=== PATIENT | male | born 1960 | race Caucasian/White ===

== ENCOUNTER 2016-07-27 21:08 | Emergency (ER) | payer BC ==
[2016-07-27 21:39] VITALS: BP 163/91
[2016-07-27] MEDS ORDERED: Indomethacin 25 MG Cap PO ONE (22:10)
--- NOTE | 2016-07-27 22:16 | EDM.PDOC ---
ED HPI Trauma - General Chief Complaint: Lower Extremity Injury/Pain Stated Complaint: FOOT Time Seen by Provider: 07/27/16 22:05 Source: Reports: Patient History Limitations: Reports: No limitations - History of Present Illness INITIAL COMMENTS - FREE TEXT/NARRATIVE: This 56 yo male patient reports to the ED with swelling in his left foot. The patient reports he has a history of gout and has had similar gout attacks in the past. The patient ran out of Indomethacin. The patient reports that he currently does not have a primary care provider and is not on any medications for managing his gout. The patient reports he recently ate beans, which may have precipitated the attack. Symptom Onset Date: 07/26/16 Occurred Where: other Method of Injury: other Severity: moderate Pain/Injury Location: Reports: lower extremity, left Consciousness: Reports: no loss of consciousness Associated Symptoms: Reports: no other symptoms Allergies/ADRs: Allergies No Known Allergies Allergy (Verified 07/27/16 21:40) Home Medications: Ambulatory Orders Indomethacin [Indocin] 2 tab PO DAILY 10/16/14 [Confirmed 07/27/16] Past Medical History - Past Health History Medical/Surgical History: Denies Medical/Surgical History Other Gastrointestinal History: hepatitis C Musculoskeletal History: Reports: Gout Social & Family History - Tobacco Use Smoking Status *Q: Current Every Day Smoker Years of Tobacco use: 30 Packs/Tins Daily: 1 Used Tobacco, but Quit: No Second Hand Smoke Exposure: Yes - Caffeine Use Caffeine Use: Reports: Coffee - Alcohol Use Days Per Week of Alcohol Use: 7 Number of Drinks Per Day: 2 Total Drinks Per Week: 14 - Recreational Drug Use Recreational Drug Use: No Review of Systems - Review of Systems Review Of Systems: ROS reveals no pertinent complaints other than HPI. Trauma Exam - Physical Exam Exam: See Below Exam Limited By: No limitations General Appearance: Reports: alert, WD/WN Head: Reports: atraumatic, normocephalic Eyes: bilateral eye: EOMI, normal inspection, PERRL Ears: Reports: normal external exam, normal canal, hearing grossly normal, normal TMs Nose: Reports: normal inspection, normal mucousa, no blood Throat/Mouth: Reports: Normal inspection, Normal lips, Normal teeth, Normal gums , Normal oropharynx, Normal voice, No airway compromise Neck: Reports: non-tender, full range of motion, normal alignment, normal inspection Respiratory Exam: Reports: no respiratory distress, lungs clear, normal breath sounds Cardiovascular: Reports: normal peripheral pulses, regular rate, rhythm, no edema, no gallop, no JVD, no murmur, no rub GI/Abdominal: Reports: normal bowel sounds, soft, non tender, no organomegaly, no distention, no abnormal bruit, no mass (Male) Exam: Deferred Rectal (Males) Exam: Deferred Back: Reports: full range of motion, normal inspection, non-tender Extremities: Reports: pedal edema (left foot and ankle) 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, no motor/sensory deficits, alert , normal mood/affect, oriented x 3 Skin: Reports: Normal color, Warm/dry - Irving Coma Score Best Eye Response (Irving): (4) open spontaneously Best Verbal Response (Irving): (5) oriented Best Motor Response (Irving): (6) obeys commands Ernesto Total: 15 Course - Vital Signs Last Recorded V/S: Last Vital Signs Temp 36.0 C 07/27/16 21:37 Pulse 91 07/27/16 21:37 Resp 20 07/27/16 21:37 BP 163/91 H 07/27/16 21:37 Pulse Ox 100 07/27/16 21:37 - Orders/Labs/Meds Meds: Medications Discontinued Medications Generic Name Dose Route Start Last Admin Trade Name Humza PRN Reason Stop Dose Admin Indomethacin 50 mg 07/27/16 22:10 Indocin PO 07/27/16 22:11 ONETIME ONE Departure - Departure Time of Disposition: 22:12 Disposition: Home, Self-Care 01 Condition: fair Clinical Impression: Gout attack Qualifiers: Gout site: foot Gout etiology: unspecified cause Laterality: left Qualified Code(s): M10.9 - Gout, unspecified Instructions: Gout, [id number] Forms: ED Department Discharge Care Plan Goals: The patient was advised of the examination results during the visit. The patient was given an oral dose of Indomethacin (50 mg) while in the ED. The patient was discharged with a script for Indomethacin (50 mg) #20 to take 1 by mouth 3 times per day. The patient should follow-up with a primary care facility for continued evaluation and treatment. If the patient has any additional symptoms or concerns, the patient should visit his primary care facility or return to the emergency department.
== END 2016-07-27 22:23 | disposition home or self-care (01) ==
LOC: DL.ED 21:08
DX: M10.9 Gout, unspecified (principal); F17.210 Nicotine dependence, cigarettes, uncomplicated
CPT/HCPCS: 99283; A9270

== ENCOUNTER 2017-01-11 11:59 | Emergency (ER) | payer BC ==
[2017-01-11 12:14] VITALS: BP 107/64
--- NOTE | 2017-01-11 12:57 | EDM.PDOC ---
ED HPI GENERAL MEDICAL PROBLEM - General Chief Complaint: Lower Extremity Injury/Pain Stated Complaint: RT ANKEL/FOOT. BROKE OR GOUT Time Seen by Provider: 01/11/17 12:50 Source of Information: Reports: Patient History Limitations: Reports: No Limitations - History of Present Illness INITIAL COMMENTS - FREE TEXT/NARRATIVE: Patient presents to the ER with complaints of right foot and ankle pain. He reports that the pain has been ongoing for the past three days. The pain started originally after falling 2-3 feet of a ladder. He reports he fell flat onto his heel and heard a "crunch." The pain has since worsened and is much more severe this morning. He rates the pain 10/10, described as throbbing and stabbing. He reports that the pain is typical to gout attacks in the past. He denies any other associated symptoms. Patient states that in the past the only thing that has worked for his gout pain is indomethacin. Right Feet Pain Score (Numeric/FACES): 10 - Related Data Allergies Allergy/AdvReac Type Severity Reaction Status Date / Time No Known Allergies Allergy Verified 01/11/17 12:10 Home Meds: Home Meds Indomethacin [Indocin] 2 tab PO DAILY 10/16/14 [History] Past Medical History - Past Health History Medical/Surgical History: Denies Medical/Surgical History HEENT History: Reports: Impaired Vision Other Gastrointestinal History: hepatitis C Musculoskeletal History: Reports: Gout Social & Family History - Family History Family Medical History: Noncontributory - Tobacco Use Smoking Status *Q: Current Every Day Smoker Years of Tobacco use: 40 Packs/Tins Daily: 0.5 Used Tobacco, but Quit: No Second Hand Smoke Exposure: Yes - Caffeine Use Caffeine Use: Reports: Coffee, Energy Drinks, Soda, Tea - Alcohol Use Days Per Week of Alcohol Use: 7 Number of Drinks Per Day: 2 Total Drinks Per Week: 14 Date of Last Drink: 01/10/17 - Recreational Drug Use Recreational Drug Use: No Review of Systems - Review of Systems Review Of Systems: ROS reveals no pertinent complaints other than HPI. ED EXAM, GENERAL - Physical Exam Exam: See Below Exam Limited By: Altered Mental Status General Appearance: Alert, WD/WN, No Apparent Distress Respiratory/Chest: No Respiratory Distress, Lungs Clear, Normal Breath Sounds, No Accessory Muscle Use, Chest Non-Tender Cardiovascular: Normal Peripheral Pulses, Regular Rate, Rhythm, No Edema, No Gallop, No JVD, No Murmur, No Rub GI/Abdominal: Normal Bowel Sounds, Soft, Non-Tender, No Organomegaly, No Distention, No Abnormal Bruit, No Mass (Male) Exam: Deferred Rectal (Males) Exam: Deferred Back Exam: Normal Inspection, Full Range of Motion, NT Extremities: Normal Inspection, Normal Range of Motion, Normal Capillary Refill , Joint Swelling, Redness (redness and swelling to right foot) Neurological: Alert, Oriented, CN II-XII Intact, Normal Cognition, Normal Gait, Normal Reflexes, No Motor/Sensory Deficits Skin Exam: Warm, Dry, Intact, Normal Color, No Rash Lymphatic: No Adenopathy Course - Vital Signs Last Recorded V/S: Last Vital Signs Temp 36.6 C 01/11/17 12:11 Pulse 77 01/11/17 12:11 Resp 18 01/11/17 12:11 BP 107/64 01/11/17 12:11 Pulse Ox 99 01/11/17 12:11 - Orders/Labs/Meds Labs: Laboratory Tests 01/11/17 01/11/17 Range/Units 12:55 12:55 WBC 14.2 H (5.0-10.0) 10^3/uL RBC 4.54 L (4.6-6.2) 10^6/uL Hgb 15.1 (14.0-18.0) g/dL Hct 43.5 (40.0-54.0) % MCV 95.8 (80-100) fL MCH 33.3 (27.0-34.0) pg MCHC 34.7 (33.0-35.0) g/dL Plt Count 274 (150-450) 10^3/uL Neut % (Auto) 66.6 (42.2-75.2) % Lymph % (Auto) 19.3 L (20.5-50.1) % [place] % (Auto) 13.2 H (2-8) % Eos % (Auto) 0.5 L (1.0-3.0) % Baso % (Auto) 0.4 (0.0-1.0) % Sodium 136 (135-145) mmol/L Potassium 4.1 (3.6-5.0) mmol/L Chloride 99 L (101-111) mmol/L Carbon Dioxide 24.0 (21.0-31.0) mmol/L Anion Gap 17.1 BUN 14 (7-18) mg/dL Creatinine 0.9 (0.6-1.3) mg/dL Est Cr Clr Drug Dosing 99.40 mL/min Estimated GFR (MDRD) > 60 BUN/Creatinine Ratio 15.55 Glucose 125 H (74-105) mg/dL Uric Acid 8.0 H (2.6-7.2) mg/dL Calcium 9.2 (8.4-10.2) mg/dl Total Bilirubin 1.2 H (0.2-1.0) mg/dL AST 19 (10-42) IU/L ALT 16 (10-60) IU/L Alkaline Phosphatase 84 (42-121) IU/L Total Protein 8.0 (6.7-8.2) g/dl Albumin 4.3 (3.2-5.5) g/dl Globulin 3.7 Albumin/Globulin Ratio 1.16 Meds: Medications Discontinued Medications Generic Name Dose Route Start Last Admin Trade Name Robyq PRN Reason Stop Dose Admin Indomethacin 50 mg 01/11/17 13:37 01/11/17 13:45 Indocin PO 01/11/17 13:38 50 mg ONETIME ONE Administration Departure - Departure Time of Disposition: 15:23 Disposition: Home, Self-Care 01 Condition: Fair Clinical Impression: Gout attack Qualifiers: Gout site: foot Gout etiology: unspecified cause Laterality: left Qualified Code(s): M10.9 - Gout, unspecified Right ankle sprain Qualifiers: Encounter type: initial encounter Involved ligament of ankle: unspecified ligament Qualified Code(s): S93.401A - Sprain of unspecified ligament of right ankle, initial encounter Gout Qualifiers: Gout site: foot Gout etiology: unspecified cause Chronicity: acute Laterality: right Qualified Code(s): M10.9 - Gout, unspecified - Discharge Information Instructions: Ankle Sprain, Luhu-en-[id number], Gout Forms: ED Department Discharge Care Plan Goals: Patient was given 50 mg indomethacin in the ER with improvement in pain. Discussed slightly elevated uric acid level and xray results. Discussed that patient likely also sprained of his right ankle. Advised him to rest, ice, and elevate it. Patient prescribed 50 mg indomethacin PO TID x 10 days. Instructed patient to follow up with his primary care provider or return to the ER if symptoms worsen or do not improve.
[2017-01-11 13:23] LABS: CHLORIDE,CL 99 mmol/L (101-111); SODIUM,NA 136 mmol/L (135-145)
[2017-01-11] MEDS ORDERED: Indomethacin 25 MG Cap PO ONE (13:37)
== END 2017-01-11 15:36 | disposition home or self-care (01) ==
LOC: DL.ED 11:59
DX: S93.401A Sprain of unspecified ligament of right ankle, initial encounter (principal); M10.9 Gout, unspecified; F17.210 Nicotine dependence, cigarettes, uncomplicated; H54.7 Unspecified visual loss; Z79.899 Other long term (current) drug therapy; W11.XXXA Fall on and from ladder, initial encounter
CPT/HCPCS: 36415; 73610; 73630; 80053; 84550; 85025; 99284; A9270

== ENCOUNTER 2017-05-13 16:22 | Emergency (ER) | payer BC ==
[2017-05-13] MEDS ORDERED: Indomethacin 25 MG Cap PO ONE (19:10)
--- NOTE | 2017-05-13 19:14 | EDM.PDOC ---
ED HPI GENERAL MEDICAL PROBLEM - General Chief Complaint: Lower Extremity Injury/Pain Stated Complaint: gout [phone] Time Seen by Provider: 05/13/17 19:11 Source of Information: Reports: Patient History Limitations: Reports: No Limitations - History of Present Illness INITIAL COMMENTS - FREE TEXT/NARRATIVE: gives long h/o gout and indocin work good but out of it. flared up 2 days ago and getting worse. doesn't have primary care. Right Feet Pain Score (Numeric/FACES): 6 - Related Data Allergies Allergy/AdvReac Type Severity Reaction Status Date / Time No Known Allergies Allergy Verified 05/13/17 16:54 Home Meds: Home Meds Indomethacin [Indocin] 2 tab PO DAILY 10/16/14 [History] Past Medical History - Past Health History Medical/Surgical History: Denies Medical/Surgical History HEENT History: Reports: Impaired Vision Cardiovascular History: Reports: None Respiratory History: Reports: None Gastrointestinal History: Reports: Other (See Below) Other Gastrointestinal History: hepatitis C Genitourinary History: Reports: None Musculoskeletal History: Reports: Gout Neurological History: Reports: None Psychiatric History: Reports: None Endocrine/Metabolic History: Reports: None Hematologic History: Reports: None Immunologic History: Reports: None Oncologic (Cancer) History: Reports: None Dermatologic History: Reports: None - Infectious Disease History Infectious Disease History: Reports: Hepatitis C - Past Surgical History Cardiovascular Surgical History: Reports: None Respiratory Surgical History: Reports: None GI Surgical History: Reports: None Male Surgical History: Reports: None Endocrine Surgical History: Reports: None Oncologic Surgical History: Reports: None Dermatological Surgical History: Reports: None Social & Family History - Family History Family Medical History: Noncontributory - Tobacco Use Smoking Status *Q: Current Every Day Smoker Years of Tobacco use: 40 Packs/Tins Daily: 1 Used Tobacco, but Quit: No Second Hand Smoke Exposure: Yes - Caffeine Use Caffeine Use: Reports: Coffee, Energy Drinks, Soda, Tea - Alcohol Use Days Per Week of Alcohol Use: 7 Number of Drinks Per Day: 5 Total Drinks Per Week: 35 - Recreational Drug Use Recreational Drug Use: No Review of Systems - Review of Systems Review Of Systems: ROS reveals no pertinent complaints other than HPI. ED EXAM, GENERAL - Physical Exam Exam: See Below Exam Limited By: No Limitations General Appearance: Alert, WD/WN, Mild Distress, Moderate Distress, Other (foot pain) Ears: Hearing Grossly Normal Throat/Mouth: Normal Voice, No Airway Compromise Head: Atraumatic Neck: Non-Tender, Full Range of Motion Respiratory/Chest: No Respiratory Distress Cardiovascular: Regular Rate, Rhythm GI/Abdominal: Soft, Non-Tender Extremities: Joint Swelling, Limited Range of Motion, Increased Warmth, Redness , Other (right foot inflammation, NV wnl, gait limited to pain) Neurological: Alert, Normal Cognition, No Motor/Sensory Deficits Psychiatric: Tearful Skin Exam: Warm, Dry, Normal Color Lymphatic: No Adenopathy Course - Vital Signs Last Recorded V/S: Last Vital Signs Temp 36.8 C 05/13/17 18:56 Pulse 77 05/13/17 18:56 Resp 18 05/13/17 18:56 BP 123/81 05/13/17 18:56 Pulse Ox 100 05/13/17 18:56 - Orders/Labs/Meds Meds: Medications Discontinued Medications Generic Name Dose Route Start Last Admin Trade Name Freq PRN Reason Stop Dose Admin Indomethacin 50 mg 05/13/17 19:10 05/13/17 19:14 Indocin PO 05/13/17 19:11 50 mg ONETIME ONE Administration Ketorolac Tromethamine 15 mg 05/13/17 19:31 05/13/17 19:39 Toradol IVPUSH 05/13/17 19:32 15 mg ONETIME ONE Administration - Re-Assessments/Exams Free Text/Narrative Re-Assessment/Exam: 05/13/17 19:50 s/p IV toradol = much better but not 100% yet. Departure - Departure Time of Disposition: 19:51 Disposition: Home, Self-Care 01 Condition: Good Clinical Impression: Acute gout Qualifiers: Gout site: foot Gout etiology: unspecified cause Laterality: right Qualified Code(s): M10.9 - Gout, unspecified - Discharge Information Instructions: Gout, Lhwa-[id number]-[id number] Forms: ED Department Discharge Additional Instructions: 1) elevate leg as much as possible next 48 hours 2) try hot soaks 3) recheck as needed rx given; indocin 50mg bid x 60
[2017-05-13] MEDS ORDERED: Ketorolac 30 MG/ML SDV IVPUSH ONE (19:31)
[2017-05-13 20:04] VITALS: BP 121/85
== END 2017-05-13 20:00 | disposition home or self-care (01) ==
LOC: DL.ED 16:22
DX: M10.9 Gout, unspecified (principal); F17.210 Nicotine dependence, cigarettes, uncomplicated; Z79.899 Other long term (current) drug therapy
CPT/HCPCS: 96374; 99283; A9270; J1885

== ENCOUNTER 2018-01-15 15:29 | Emergency (ER) | payer BC ==
[2018-01-15 15:36] VITALS: BP 129/98
[2018-01-15] MEDS ORDERED: Ibuprofen 800 MG Tab PO ONE (16:56)
[2018-01-15] MEDS ORDERED: Colchicine 0.6 MG Tab PO ONE (16:56)
[2018-01-15] MEDS ORDERED: predniSONE 20 MG Tab PO ONE (16:57)
--- NOTE | 2018-01-15 16:59 | EDM.PDOC ---
ED HPI GENERAL MEDICAL PROBLEM - General Chief Complaint: Lower Extremity Injury/Pain Stated Complaint: LEFT FOOT, GOUT, NO MEDS Time Seen by Provider: 01/15/18 16:51 Source of Information: Reports: Patient, RN, RN Notes Reviewed History Limitations: Reports: No Limitations - History of Present Illness INITIAL COMMENTS - FREE TEXT/NARRATIVE: Patient presented to ER with complaint of gout flare up. This began yesterday a.m. on his left foot. Pain is 9/10. Onset Date: 01/14/18 Duration: Getting Worse Location: Reports: Lower Extremity, Left Quality: Reports: Ache Severity: Moderate Improves with: Reports: None Worsens with: Reports: None Associated Symptoms: Reports: No Other Symptoms Left Feet Pain Score (Numeric/FACES): 9 - Related Data Allergies Allergy/AdvReac Type Severity Reaction Status Date / Time No Known Allergies Allergy Verified 01/15/18 15:36 Home Meds: Home Meds Indomethacin [Indocin] 2 tab PO DAILY 10/16/14 [History] Past Medical History - Past Health History Medical/Surgical History: Denies Medical/Surgical History HEENT History: Reports: Impaired Vision Cardiovascular History: Reports: None Respiratory History: Reports: None Gastrointestinal History: Reports: Other (See Below) Other Gastrointestinal History: hepatitis C Genitourinary History: Reports: None Musculoskeletal History: Reports: Arthritis, Back Pain, Chronic, Gout Neurological History: Reports: None Psychiatric History: Reports: None Endocrine/Metabolic History: Reports: None Hematologic History: Reports: None Immunologic History: Reports: None Oncologic (Cancer) History: Reports: None Dermatologic History: Reports: None - Infectious Disease History Infectious Disease History: Reports: Hepatitis C - Past Surgical History Cardiovascular Surgical History: Reports: None Respiratory Surgical History: Reports: None GI Surgical History: Reports: None Male Surgical History: Reports: None Endocrine Surgical History: Reports: None Oncologic Surgical History: Reports: None Dermatological Surgical History: Reports: None Social & Family History - Family History Family Medical History: Noncontributory - Tobacco Use Smoking Status *Q: Current Every Day Smoker Years of Tobacco use: 40 Packs/Tins Daily: 1 Second Hand Smoke Exposure: Yes - Caffeine Use Caffeine Use: Reports: Coffee, Energy Drinks, Soda, Tea - Recreational Drug Use Recreational Drug Use: No Review of Systems - Review of Systems Review Of Systems: ROS reveals no pertinent complaints other than HPI. ED EXAM, GENERAL - Physical Exam Exam: See Below Exam Limited By: No Limitations General Appearance: Alert, WD/WN, No Apparent Distress Eye Exam: Bilateral Eye: Normal Inspection Ears: Normal External Exam, Normal Canal, Hearing Grossly Normal, Normal TMs Nose: Normal Inspection, Normal Mucosa, No Blood Throat/Mouth: Normal Inspection, Normal Lips, Normal Teeth, Normal Gums, Normal Oropharynx, Normal Voice, No Airway Compromise Head: Atraumatic, Normocephalic Neck: Normal Inspection, Supple, Non-Tender, Full Range of Motion Respiratory/Chest: Rhonchi (throughout) Cardiovascular: Normal Peripheral Pulses, Regular Rate, Rhythm, No Edema, No Gallop, No JVD, No Murmur, No Rub GI/Abdominal: Normal Bowel Sounds, Soft, Non-Tender, No Organomegaly, No Distention, No Abnormal Bruit, No Mass (Male) Exam: Deferred Rectal (Males) Exam: Deferred Back Exam: Normal Inspection, Full Range of Motion, NT Extremities: Other (left foot decreased range of motion, tender and erythematous.) Neurological: Alert, Oriented, CN II-XII Intact, Normal Cognition, Normal Gait, Normal Reflexes, No Motor/Sensory Deficits Psychiatric: Normal Affect, Normal Mood Skin Exam: Warm, Dry, Intact, Normal Color, No Rash Lymphatic: No Adenopathy Course - Vital Signs Last Recorded V/S: Last Vital Signs Temp 96.8 F 01/15/18 15:33 Pulse 100 01/15/18 15:33 Resp 18 01/15/18 15:33 BP 129/98 H 01/15/18 15:33 Pulse Ox 100 01/15/18 15:33 - Orders/Labs/Meds Labs: Laboratory Tests 01/15/18 01/15/18 Range/Units 15:50 15:50 WBC 13.4 H (5.0-10.0) 10^3/uL RBC 4.76 (4.6-6.2) 10^6/uL Hgb 15.6 (14.0-18.0) g/dL Hct 45.3 (40.0-54.0) % MCV 95.2 (80-100) fL MCH 32.8 (27.0-34.0) pg MCHC 34.4 (33.0-35.0) g/dL Plt Count 249 (150-450) 10^3/uL Neut % (Auto) 64.7 (42.2-75.2) % Lymph % (Auto) 23.5 (20.5-50.1) % [place] % (Auto) 11.2 H (2-8) % Eos % (Auto) 0.3 L (1.0-3.0) % Baso % (Auto) 0.3 (0.0-1.0) % Uric Acid 8.5 H (2.6-7.2) mg/dL Meds: Medications Discontinued Medications Generic Name Dose Route Start Last Admin Trade Name Freq PRN Reason Stop Dose Admin Colchicine 1.8 mg 01/15/18 16:56 01/15/18 17:03 Colcrys PO 01/15/18 16:57 1.8 mg ONETIME ONE Administration Ibuprofen 800 mg 01/15/18 16:56 01/15/18 17:03 Motrin PO 01/15/18 16:57 800 mg ONETIME ONE Administration Prednisone 40 mg 01/15/18 16:57 01/15/18 17:03 Prednisone PO 01/15/18 16:58 40 mg ONETIME ONE Administration Departure - Departure Time of Disposition: 17:02 Disposition: Home, Self-Care 01 Condition: Fair Clinical Impression: Gout attack Qualifiers: Gout site: foot Gout etiology: unspecified cause Laterality: right Qualified Code(s): M10.9 - Gout, unspecified - Discharge Information *PRESCRIPTION DRUG MONITORING PROGRAM REVIEWED*: No *COPY OF PRESCRIPTION DRUG MONITORING REPORT IN PATIENT LORENZO: No Instructions: Gout, [id number] Forms: ED Department Discharge Additional Instructions: Continue using ibuprofen as directed for pain RX: Prednisone Follow up with your primary care facility
== END 2018-01-15 17:07 | disposition home or self-care (01) ==
LOC: DL.ED 15:29
DX: M10.9 Gout, unspecified (principal); F17.210 Nicotine dependence, cigarettes, uncomplicated
CPT/HCPCS: 36415; 84550; 85025; 99283; A9270

== ENCOUNTER 2018-05-07 13:47 | Emergency (ER) | payer BC ==
[2018-05-07 14:53] VITALS: BP 135/79
== END 2018-05-07 18:21 | disposition left against medical advice (07) ==
LOC: DL.ED 13:47
DX: Z53.21 Procedure and treatment not carried out due to patient leaving prior to being seen by health care provider (principal)

== ENCOUNTER 2018-05-08 10:02 | Emergency (ER) | payer BC, MEDICAID ==
[2018-05-08 10:14] VITALS: BP 119/80
[2018-05-08] MEDS ORDERED: Acetaminophen/HYDROcodone 325-5 MG Tab PO ONE (10:37)
[2018-05-08] MEDS ORDERED: Acetaminophen/HYDROcodone 325-10 MG Tab PO ONE (10:38)
--- NOTE | 2018-05-08 10:39 | EDM.PDOC ---
ED HPI GENERAL MEDICAL PROBLEM - General Chief Complaint: Lower Extremity Injury/Pain Stated Complaint: GAL BLADDER FLARE UP Time Seen by Provider: 05/08/18 10:33 Source of Information: Reports: Patient History Limitations: Reports: No Limitations - History of Present Illness INITIAL COMMENTS - FREE TEXT/NARRATIVE: Patient comes emergency department today with complaints of bilateral foot pain and a gout flareup. Patient has had long-standing problems with gout. He has been out of his allopurinol as well as his indomethacin for quite some time. He does have a primary care provider but he has not seen them in the last month when his gout is gotten much worse. He has not been on any prednisone for about 6 months and that was for his hip. He is unsure of how his kidney function is or if he is a diabetic. No recent injury to his lower extremities. His left foot is much worse than his right. It is very hypersensitive and swollen. It is difficult for him to put his shoes on. Bilateral Lower Ankle Pain Score (Numeric/FACES): 8 - Related Data Allergies Allergy/AdvReac Type Severity Reaction Status Date / Time No Known Allergies Allergy Verified 05/08/18 10:11 Home Meds: Home Meds Allopurinol [Zyloprim] 100 mg PO DAILY #30 tab 05/08/18 [Rx] Indomethacin [Indocin] 1 tab PO TID PRN #25 cap 05/08/18 [Rx] Omeprazole 20 mg PO DAILY #30 tab. 05/08/18 [Rx] predniSONE 40 mg PO .Daily Taper #5 tab 05/08/18 [Rx] Past Medical History - Past Health History Medical/Surgical History: Denies Medical/Surgical History HEENT History: Reports: Impaired Vision Cardiovascular History: Reports: None Respiratory History: Reports: None Gastrointestinal History: Reports: Other (See Below) Other Gastrointestinal History: hepatitis C Genitourinary History: Reports: None Musculoskeletal History: Reports: Arthritis, Back Pain, Chronic, Gout Neurological History: Reports: None Psychiatric History: Reports: None Endocrine/Metabolic History: Reports: None Hematologic History: Reports: None Immunologic History: Reports: None Oncologic (Cancer) History: Reports: None Dermatologic History: Reports: None - Infectious Disease History Infectious Disease History: Reports: Hepatitis C - Past Surgical History Head Surgeries/Procedures: Reports: None Cardiovascular Surgical History: Reports: None Respiratory Surgical History: Reports: None GI Surgical History: Reports: None Male Surgical History: Reports: None Endocrine Surgical History: Reports: None Oncologic Surgical History: Reports: None Dermatological Surgical History: Reports: None Social & Family History - Family History Family Medical History: Noncontributory - Tobacco Use Smoking Status *Q: Current Every Day Smoker Years of Tobacco use: 50 Packs/Tins Daily: 0.7 - Caffeine Use Caffeine Use: Reports: Coffee - Alcohol Use Days Per Week of Alcohol Use: 2 Number of Drinks Per Day: 6 Total Drinks Per Week: 12 - Recreational Drug Use Recreational Drug Use: No Review of Systems - Review of Systems Review Of Systems: ROS reveals no pertinent complaints other than HPI. ED EXAM, GENERAL - Physical Exam Exam: See Below Free Text/Narrative:: He does appear quite uncomfortable in pain. General Appearance: Alert Respiratory/Chest: No Respiratory Distress, Lungs Clear Cardiovascular: Normal Peripheral Pulses, Regular Rate, Rhythm Peripheral Pulses: 2+: Popliteal (L), Popliteal (R), Posterior Tibial (L), Posterior Tibial (R), Dorsalis Pedis (L), Dorsalis Pedis (R) GI/Abdominal: Normal Bowel Sounds, Soft Extremities: Normal Range of Motion, Normal Capillary Refill, Other (He does have some mild swelling to the left base of the big toe as well as some mild erythema the swelling extends throughout most of the dorsum of the foot. No acute bony abnormality or break in the skin. Similarly on the right foot he has some generalized dorsal foot swelling at the base of the right big toe not as impressive as the left. No breaks in the skin. He is quite hypersensitive throughout the entirety of bilateral lower feet.) Neurological: Alert, Oriented Psychiatric: Normal Affect, Normal Mood Skin Exam: Warm, Dry, Intact, Other (As above) Course - Vital Signs Last Recorded V/S: Last Vital Signs Temp 36.6 C 05/08/18 10:11 Pulse 77 05/08/18 10:11 Resp 18 05/08/18 10:11 BP 119/80 05/08/18 10:11 Pulse Ox 98 05/08/18 10:11 - Orders/Labs/Meds Labs: Laboratory Tests 05/08/18 Range/Units 10:46 Sodium 135 (135-145) mmol/L Potassium 4.0 (3.6-5.0) mmol/L Chloride 99 L (101-111) mmol/L Carbon Dioxide 25.0 (21.0-31.0) mmol/L Anion Gap 15.0 BUN 10 (7-18) mg/dL Creatinine 0.8 (0.6-1.3) mg/dL Est Cr Clr Drug Dosing 105.89 mL/min Estimated GFR (MDRD) > 60 Glucose 109 H (74-105) mg/dL Uric Acid 6.3 (2.6-7.2) mg/dL Calcium 9.1 (8.4-10.2) mg/dl Meds: Medications Discontinued Medications Generic Name Dose Route Start Last Admin Trade Name Freq PRN Reason Stop Dose Admin Hydrocodone Bitart/Acetaminophen 1 tab 05/08/18 10:37 05/08/18 11:10 Wolbach 325-5 Mg PO 05/08/18 10:38 Not Given ONETIME ONE Hydrocodone Bitart/Acetaminophen 1 tab 05/08/18 10:38 05/08/18 10:49 Wolbach 325-10 Mg PO 05/08/18 10:39 1 tab ONETIME ONE Administration Indomethacin 50 mg 05/08/18 10:40 05/08/18 10:49 Indocin PO 05/08/18 10:41 50 mg ONETIME ONE Administration - Re-Assessments/Exams Free Text/Narrative Re-Assessment/Exam: 05/08/18 11:45 He was given hydrocodone as well as indomethacin while in the emergency parent. His laboratory evaluation is rather unremarkable he is unsure of what his kidney status was her diabetes status. His uric acid level was normal I will send him home with some prednisone indomethacin allopurinol hydrocodone will also give some omeprazole to protect his stomach but this aggressive therapy as above. I did discuss his chronic management things need to be taken care of in the primary care clinic. He is understanding of this and his questions are answered. Departure - Departure Time of Disposition: 11:26 Disposition: Home, Self-Care 01 Clinical Impression: Gout attack Qualifiers: Gout site: foot Gout etiology: unspecified cause Laterality: left Qualified Code(s): M10.9 - Gout, unspecified - Discharge Information Prescriptions: Allopurinol [Zyloprim] 100 mg PO DAILY #30 tab Indomethacin [Indocin] 1 tab PO TID PRN #25 cap PRN Reason: Other Omeprazole 20 mg PO DAILY #30 tab.rap predniSONE 40 mg PO .Daily Taper #5 tab Instructions: Gout, [id number], Pain Medicine Instructions, [id number] Forms: ED Department Discharge Additional Instructions: Idomethacin, 1 tablet three times a day as needed for pain. Do not take with other NSAIDs Ibuprofen Aleve Motrin etc. RX given to the patient. Prednisone 40mg a day for the next 5 days. RX given to the patient. Allopurinol 100mg a day. RX given to the patient. make sure you take the above medications on a full stomach. 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 Please see your PCP in the next week for custodial management of your chronic gout. If pain not controlled with above Wolbach 1 tablet every 4 hrs as needed for pain. RX given to the patient. Return to the ED if new or worsening diet. Limit foods high in purine. Lots of fluids over the next few days. Omeprazole daily to protect your stomach with all the above medications. - Assessment/Plan Assessment:: Acute on chronic gouty arthritis bilaterally. Plan: Idomethacin, 1 tablet three times a day as needed for pain. Do not take with other NSAIDs Ibuprofen Aleve Motrin etc. RX given to the patient. Prednisone 40mg a day for the next 5 days. RX given to the patient. Allopurinol 100mg a day. RX given to the patient. make sure you take the above medications on a full stomach. You must get your custodial medications out of the clinic. Please see your PCP in the next week for custodial management of your chronic gout. If pain not controlled with above Wolbach 1 tablet every 4 hrs as needed for pain. RX given to the patient. Return to the ED if new or worsening diet. Limit foods high in purine. Lots of fluids over the next few days. Omeprazole daily to protect the stomach as well.
[2018-05-08] MEDS ORDERED: Indomethacin 25 MG Cap PO ONE (10:40)
[2018-05-08 11:13] LABS: CHLORIDE,CL 99 mmol/L (101-111); SODIUM,NA 135 mmol/L (135-145)
== END 2018-05-08 11:40 | disposition home or self-care (01) ==
LOC: DL.ED 10:02
DX: M10.9 Gout, unspecified (principal); F17.210 Nicotine dependence, cigarettes, uncomplicated; Z79.899 Other long term (current) drug therapy
CPT/HCPCS: 36415; 80048; 84550; 99283; A9270

== ENCOUNTER 2020-01-30 10:11 | Emergency (ER) | payer BC, MEDICAID ==
--- NOTE | 2020-01-30 10:43 | EDM.PDOC ---
ED HPI GENERAL MEDICAL PROBLEM - General Chief Complaint: Lower Extremity Injury/Pain Stated Complaint: RIGHT KNEE SWELLING AFFECTING MOBILITY Time Seen by Provider: 01/30/20 10:43 Source of Information: Reports: Patient, Old Records, RN, RN Notes Reviewed History Limitations: Reports: No Limitations - History of Present Illness INITIAL COMMENTS - FREE TEXT/NARRATIVE: Pt to ER, unable to bear weight on right knee. Started Tuesday (4 days ago) with a right ankle gout flare, which has since resolved leaving some fading ecchymosis to the right foot. Tuesday morning (3 days ago) he awoke with severe right knee pain. The joint is edematous but not ecchymotic or erythematous. He denies any fever or chills. States that he has been taking extra Allopurinol, as he usually takes Indomethacin for attacks but did not have any. Onset: Gradual Duration: Constant, Getting Worse Location: Reports: Lower Extremity, Right Quality: Reports: Ache, Same as Previous Episode, Sharp, Throbbing Severity: Severe Improves with: Reports: Immobilization Worsens with: Reports: Movement Associated Symptoms: Reports: No Other Symptoms Right Knee Pain Score (Numeric/FACES): 8 - Related Data Allergies Allergy/AdvReac Type Severity Reaction Status Date / Time No Known Allergies Allergy Verified 01/30/20 10:50 Home Meds: Home Meds Indomethacin [Indocin] 1 tab PO TID PRN #25 cap 05/08/18 [Rx] Omeprazole 20 mg PO DAILY #30 tab. 05/08/18 [Rx] allopurinoL [Zyloprim] 100 mg PO DAILY #30 tab 05/08/18 [Rx] Metoprolol Tartrate [Lopressor] 12.5 mg PO BID 01/30/20 [History] Past Medical History - Past Health History Medical/Surgical History: Denies Medical/Surgical History HEENT History: Reports: Impaired Vision Cardiovascular History: Reports: None Respiratory History: Reports: None Gastrointestinal History: Reports: Other (See Below) Other Gastrointestinal History: hepatitis C Genitourinary History: Reports: None Musculoskeletal History: Reports: Arthritis, Back Pain, Chronic, Gout Neurological History: Reports: None Psychiatric History: Reports: None Endocrine/Metabolic History: Reports: None Hematologic History: Reports: None Immunologic History: Reports: None Oncologic (Cancer) History: Reports: None Dermatologic History: Reports: None - Infectious Disease History Infectious Disease History: Reports: Hepatitis C - Past Surgical History Head Surgeries/Procedures: Reports: None Cardiovascular Surgical History: Reports: None Respiratory Surgical History: Reports: None GI Surgical History: Reports: None Male Surgical History: Reports: None Endocrine Surgical History: Reports: None Oncologic Surgical History: Reports: None Dermatological Surgical History: Reports: None Social & Family History - Family History Family Medical History: Noncontributory - Caffeine Use Caffeine Use: Reports: Coffee - Living Situation & Occupation Living situation: Reports: with Family Occupation: Disabled Review of Systems - Review of Systems Review Of Systems: Comprehensive ROS is negative, except as noted in HPI. ED EXAM, GENERAL - Physical Exam Exam: See Below Exam Limited By: No Limitations General Appearance: Alert, WD/WN, No Apparent Distress Eye Exam: Bilateral Eye: Normal Inspection Nose: Normal Inspection Throat/Mouth: Normal Inspection, Normal Lips, Normal Voice, No Airway Compromise Head: Atraumatic, Normocephalic Neck: Normal Inspection Respiratory/Chest: No Respiratory Distress Cardiovascular: Normal Peripheral Pulses GI/Abdominal: Normal Bowel Sounds, Soft, Non-Tender Back Exam: Normal Inspection Extremities: No Pedal Edema, Joint Swelling (Right knee with generalized tenderness, increased warmth, but no erythema, anterior/patellar bursa swelling and joint effusion), Other (Left knee and all other joints normal to exam). No: Sanjuana's Sign, Mottled, Redness Neurological: Alert, Oriented, No Motor/Sensory Deficits Psychiatric: Normal Affect, Normal Mood Skin Exam: Warm, Dry, Intact, Normal Color, No Rash Course - Vital Signs Last Recorded V/S: Last Vital Signs Temp 97.8 F 01/30/20 10:44 Pulse 89 01/30/20 10:44 Resp 16 01/30/20 10:44 BP 165/78 H 01/30/20 10:44 Pulse Ox 98 01/30/20 10:44 - Orders/Labs/Meds Orders: Active Orders 24 hr Category Date Time Status Peripheral IV Care [RC] . DIRECTED Care 01/30/20 11:13 Active Sodium Chloride 0.9% [Normal Saline] 1,000 ml Med 01/30/20 11:13 Active IV .BOLUS Sodium Chloride 0.9% [Saline Flush] Med 01/30/20 11:12 Active 10 ml FLUSH ASDIRECTED PRN Peripheral IV Insertion Adult [OM.PC] Stat Oth 01/30/20 11:12 Ordered Medication Orders Sodium Chloride (Normal Saline) 1,000 mls @ 999 mls/hr IV .BOLUS ONE Stop: 01/30/20 12:13 Last Admin: 01/30/20 11:32 Dose: 999 mls/hr Documented by: MANDY Sodium Chloride (Saline Flush) 10 ml FLUSH ASDIRECTED PRN PRN Reason: Keep Vein Open Last Admin: 01/30/20 11:36 Dose: 10 ml Documented by: MANDY Labs: Laboratory Tests 01/30/20 01/30/20 01/30/20 Range/Units 10:49 10:49 10:49 WBC 11.5 H (5.0-10.0) 10^3/uL RBC 4.40 L (4.6-6.2) 10^6/uL Hgb 15.0 (14.0-18.0) g/dL Hct 43.2 (40.0-54.0) % MCV 98.2 D (80-100) fL MCH 34.1 H (27.0-34.0) pg MCHC 34.7 (33.0-35.0) g/dL Plt Count 234 (150-450) 10^3/uL Neut % (Auto) 70.5 (42.2-75.2) % Lymph % (Auto) 17.6 L (20.5-50.1) % Kemper % (Auto) 10.5 H (2-8) % Eos % (Auto) 0.4 L (1.0-3.0) % Baso % (Auto) 1.0 (0.0-1.0) % Add Manual Diff Yes Neutrophils % (Manual) 72 (42-75) % Band Neutrophils % 3 % Lymphocytes % (Manual) 18 L (20-50) % Monocytes % (Manual) 7 (2-8) % D-Dimer, Quantitative 751 H (0-400) ng/mL Sodium 136 (136-145) mmol/L Potassium 3.5 (3.5-5.1) mmol/L Chloride 97 L (98-107) mmol/L Carbon Dioxide 22 (21-32) mmol/L Anion Gap 20.5 H (7-13) mEq/L BUN 14 (7-18) mg/dL Creatinine 1.17 (0.70-1.30) mg/dL Est Cr Clr Drug Dosing 73.69 mL/min Estimated GFR (MDRD) > 60 BUN/Creatinine Ratio 12.0 (No establ ref range) Glucose 115 H (74-99) mg/dL Uric Acid 5.6 (3.5-7.2) mg/dL Calcium 8.9 (8.5-10.1) mg/dL Total Bilirubin 1.1 H (0.2-1.0) mg/dL AST 32 (15-37) U/L ALT 34 (16-63) U/L Alkaline Phosphatase 92 (46-116) U/L C-Reactive Protein 21.9 H (0.0-0.9) mg/dL Total Protein 8.3 H (6.4-8.2) g/dL Albumin 3.3 L (3.4-5.0) g/dL Globulin 5.0 Albumin/Globulin Ratio 0.66 Meds: Medications Generic Name Dose Route Start Last Admin Trade Name Freq PRN Reason Stop Dose Admin Sodium Chloride 1,000 mls @ 999 mls/hr 01/30/20 11:13 01/30/20 11:32 Normal Saline IV 01/30/20 12:13 999 mls/hr .BOLUS ONE Administration Sodium Chloride 10 ml 01/30/20 11:12 01/30/20 11:36 Saline Flush FLUSH 10 ml ASDIRECTED PRN Administration Keep Vein Open Discontinued Medications Generic Name Dose Route Start Last Admin Trade Name Freq PRN Reason Stop Dose Admin Colchicine 1.2 mg 01/30/20 11:13 01/30/20 11:35 Colcrys PO 01/30/20 11:14 1.2 mg ONETIME ONE Administration Hydromorphone HCl 1 mg 01/30/20 11:12 01/30/20 11:34 Dilaudid IVPUSH 01/30/20 11:13 1 mg ONETIME ONE Administration Ketorolac Tromethamine 30 mg 01/30/20 11:12 01/30/20 11:36 Toradol IVPUSH 01/30/20 11:13 30 mg ONETIME ONE Administration Methylprednisolone Sodium Succinate 125 mg 01/30/20 11:12 01/30/20 11:37 Solu-Medrol IVPUSH 01/30/20 11:13 125 mg ONETIME ONE Administration Ondansetron HCl 4 mg 01/30/20 11:13 01/30/20 11:32 Zofran IV 01/30/20 11:14 4 mg ONETIME ONE Administration Departure - Departure Time of Disposition: 12:08 Disposition: Home, Self-Care 01 Condition: Good Clinical Impression: Gout of right knee Qualifiers: Gout etiology: idiopathic Chronicity: acute Qualified Code(s): M10.061 - Idiopathic gout, right knee - Discharge Information *PRESCRIPTION DRUG MONITORING PROGRAM REVIEWED*: No *COPY OF PRESCRIPTION DRUG MONITORING REPORT IN PATIENT LORENZO: No Instructions: Low-Purine Eating Plan Forms: ED Department Discharge Additional Instructions: Rx: Prednisone 20mg Rx: Indomethacin 50mg Rx: Colchicine 0.6mg Rx: [place] 5mg/325mg Moist hot packs to right knee. Use crutches as needed for comfort. Follow up in clinic next week. Sepsis Event Note (ED) - Focused Exam Vital Signs: Vital Signs Temp Pulse Resp BP Pulse Ox 01/30/20 10:44 97.8 F 89 16 165/78 H 98 - My Orders Last 24 Hours: My Active Orders 01/30/20 11:12 Sodium Chloride 0.9% [Saline Flush] 10 ml FLUSH ASDIRECTED PRN Peripheral IV Insertion Adult [OM.PC] Stat 01/30/20 11:13 Peripheral IV Care [RC] . DIRECTED Sodium Chloride 0.9% [Normal Saline] 1,000 ml IV .BOLUS - Assessment/Plan Last 24 Hours: My Active Orders 01/30/20 11:12 Sodium Chloride 0.9% [Saline Flush] 10 ml FLUSH ASDIRECTED PRN Peripheral IV Insertion Adult [OM.PC] Stat 01/30/20 11:13 Peripheral IV Care [RC] . DIRECTED Sodium Chloride 0.9% [Normal Saline] 1,000 ml IV .BOLUS
[2020-01-30 10:46] VITALS: BP 165/78; PULSE 89
[2020-01-30] MEDS ORDERED: Ketorolac 30 MG/ML SDV IVPUSH ONE (11:12)
[2020-01-30] MEDS ORDERED: HYDROmorphone 1 MG/ML Syringe IVPUSH ONE (11:12)
[2020-01-30] MEDS ORDERED: methylPREDNISolone Sodium Succinate 125 MG/2 ML SDV IVPUSH ONE (11:12)
[2020-01-30] MEDS ORDERED: Sodium Chloride 0.9% 10 ML Syringe FLUSH PRN (11:12)
[2020-01-30] MEDS ORDERED: Sodium Chloride 0.9% 1,000 ML IV ONE (11:13)
[2020-01-30] MEDS ORDERED: Ondansetron 4 MG/2 ML SDV IV ONE (11:13)
[2020-01-30] MEDS ORDERED: Colchicine 0.6 MG Tab PO ONE (11:13)
[2020-01-30 11:16] LABS: ANION GAP 20.5 mEq/L (7-13); CHLORIDE,CL 97 mmol/L (98-107); SODIUM,NA 136 mmol/L (136-145)
== END 2020-01-30 12:50 | disposition home or self-care (01) ==
LOC: DL.ED 10:11
DX: M10.061 Idiopathic gout, right knee (principal); Z79.899 Other long term (current) drug therapy
CPT/HCPCS: 36415; 80053; 84550; 85025; 85379; 86140; 96361; 96374; 96375; 99283; A9270; J1170; J1885; J2405; J2930; J7030

== ENCOUNTER 2020-09-23 06:37 | Emergency (ER) | payer BC, MEDICAID ==
[2020-09-23 06:46] VITALS: BP 163/92; PULSE 112
--- NOTE | 2020-09-23 07:01 | EDM.PDOC ---
ED HPI GENERAL MEDICAL PROBLEM - General Chief Complaint: Upper Extremity Injury/Pain Stated Complaint: INFECTION IN ELBOW Time Seen by Provider: 09/23/20 07:01 Source of Information: Reports: Patient, Old Records, RN, RN Notes Reviewed History Limitations: Reports: No Limitations - History of Present Illness INITIAL COMMENTS - FREE TEXT/NARRATIVE: Pt presents to ER from home by POV with c/o three days duration of worsening left posterior elbow pain, swelling, and redness with increased warmth. Denie injury, fever, chills, or overuse. He has history of elbow bursitis, but it has never hurt this bad. He has Hx of gout, and takes allopurinol daily. Pt states even his shirt touching his elbow hurts. He is nauseated from the pain. Denies COVID symptoms or exposure. Onset: Gradual Duration: Day(s): (3), Constant, Getting Worse Location: Reports: Upper Extremity, Left Quality: Reports: Ache, Throbbing Severity: Severe Improves with: Reports: None Worsens with: Reports: Other (Touch/Palpation), Movement Associated Symptoms: Reports: No Other Symptoms Left Elbow Pain Score (Numeric/FACES): 5 - Related Data Allergies Allergy/AdvReac Type Severity Reaction Status Date / Time No Known Allergies Allergy Verified 09/23/20 06:48 Home Meds: Home Meds allopurinoL [Zyloprim] 100 mg PO DAILY #30 tab 05/08/18 [Rx] Past Medical History - Past Health History Medical/Surgical History: Denies Medical/Surgical History HEENT History: Reports: Impaired Vision Cardiovascular History: Reports: None Respiratory History: Reports: None Gastrointestinal History: Reports: Other (See Below) Other Gastrointestinal History: hepatitis C Genitourinary History: Reports: None Musculoskeletal History: Reports: Arthritis, Back Pain, Chronic, Gout Neurological History: Reports: None Psychiatric History: Reports: None Endocrine/Metabolic History: Reports: None Hematologic History: Reports: None Immunologic History: Reports: None Oncologic (Cancer) History: Reports: None Dermatologic History: Reports: None - Infectious Disease History Infectious Disease History: Reports: Hepatitis C - Past Surgical History Head Surgeries/Procedures: Reports: None Cardiovascular Surgical History: Reports: None Respiratory Surgical History: Reports: None GI Surgical History: Reports: None Male Surgical History: Reports: None Endocrine Surgical History: Reports: None Oncologic Surgical History: Reports: None Dermatological Surgical History: Reports: None Social & Family History - Family History Family Medical History: No Pertinent Family History - Tobacco Use Tobacco Use Status *Q: Current Every Day Tobacco User Tobacco Use Within Last Twelve Months: Cigarettes Years of Tobacco use: 45 Packs/Tins Daily: 1 - Caffeine Use Caffeine Use: Reports: Coffee - Alcohol Use Days Per Week of Alcohol Use: 5 Number of Drinks Per Day: 5 Total Drinks Per Week: 25 - Recreational Drug Use Recreational Drug Use: No - Living Situation & Occupation Living situation: Reports: with Family Occupation: Disabled Review of Systems - Review of Systems Review Of Systems: Comprehensive ROS is negative, except as noted in HPI. ED EXAM, GENERAL - Physical Exam Exam: See Below Exam Limited By: No Limitations General Appearance: Alert, WD/WN, No Apparent Distress Throat/Mouth: Normal Voice, No Airway Compromise Head: Atraumatic, Normocephalic Neck: Normal Inspection, Full Range of Motion Respiratory/Chest: No Respiratory Distress Cardiovascular: Normal Peripheral Pulses, Regular Rate, Rhythm, Tachycardia Peripheral Pulses: 3+: Radial (L), Radial (R) Back Exam: Normal Inspection Extremities: Arm Pain (Left olecranon elbow acutely tender with erythema, mild soft tissue swelling, no obvious bursa fluid collection, slight increased warmth, painful ROM, skin is intact. No bruising or sign of injury.) Neurological: Alert, Oriented, No Motor/Sensory Deficits Psychiatric: Normal Affect, Normal Mood Skin Exam: Warm, Dry, Intact Course - Vital Signs Last Recorded V/S: Last Vital Signs Temp 96.2 F L 09/23/20 06:45 Pulse 112 H 09/23/20 06:45 Resp 16 09/23/20 06:45 BP 163/92 H 09/23/20 06:45 Pulse Ox 98 09/23/20 06:45 - Orders/Labs/Meds Orders: Active Orders 24 hr Category Date Time Status Peripheral IV Care [RC] . DIRECTED Care 09/23/20 07:09 Active Colchicine [Colcrys] Med 09/23/20 08:05 Once 1.2 mg PO ONETIME ONE Sodium Chloride 0.9% [Saline Flush] Med 09/23/20 07:09 Active 10 ml FLUSH ASDIRECTED PRN methylPREDNISolone Sod Succ [Solu-MEDROL] Med 09/23/20 08:05 Once 125 mg IVPUSH ONETIME ONE Peripheral IV Insertion Adult [OM.PC] Stat Oth 09/23/20 07:09 Ordered Medication Orders Sodium Chloride (Sodium Chloride 0.9% 10 Ml Syringe) 10 ml FLUSH ASDIRECTED PRN PRN Reason: Keep Vein Open Last Admin: 09/23/20 07:22 Dose: 10 ml Documented by: DUSTY Labs: Laboratory Tests 09/23/20 09/23/20 09/23/20 Range/Units 07:20 07:20 07:20 WBC 10.2 H (5.0-10.0) 10^3/uL RBC 4.55 L (4.6-6.2) 10^6/uL Hgb 15.8 (14.0-18.0) g/dL Hct 44.9 (40.0-54.0) % MCV 98.7 (80-100) fL MCH 34.7 H (27.0-34.0) pg MCHC 35.2 H (33.0-35.0) g/dL Plt Count 273 (150-450) 10^3/uL Neut % (Auto) 62.5 (42.2-75.2) % Lymph % (Auto) 24.6 (20.5-50.1) % [place] % (Auto) 11.3 H (2-8) % Eos % (Auto) 0.4 L (1.0-3.0) % Baso % (Auto) 1.2 H (0.0-1.0) % Sodium 136 (136-145) mmol/L Potassium 4.5 (3.5-5.1) mmol/L Chloride 99 (98-107) mmol/L Carbon Dioxide 22 (21-32) mmol/L Anion Gap 19.5 H (7-13) mEq/L BUN 5 L (7-18) mg/dL Creatinine 1.06 (0.70-1.30) mg/dL Est Cr Clr Drug Dosing 80.32 mL/min Estimated GFR (MDRD) > 60 BUN/Creatinine Ratio 4.7 (No establ ref range) Glucose 157 H (70-99) mg/dL Lactic Acid 1.9 (0.4-2.0) mmol/L Uric Acid 7.9 H (3.5-7.2) mg/dL Calcium 8.5 (8.5-10.1) mg/dL Total Bilirubin 0.8 (0.2-1.0) mg/dL AST 31 (15-37) U/L ALT 57 (16-63) U/L Alkaline Phosphatase 111 (46-116) U/L C-Reactive Protein 6.1 H (0.0-0.9) mg/dL Total Protein 8.0 (6.4-8.2) g/dL Albumin 3.4 (3.4-5.0) g/dL Globulin 4.6 Albumin/Globulin Ratio 0.7 Meds: Medications Generic Name Dose Route Start Last Admin Trade Name Freq PRN Reason Stop Dose Admin Sodium Chloride 10 ml 09/23/20 07:09 09/23/20 07:22 Sodium Chloride 0.9% 10 Ml Syringe FLUSH 10 ml ASDIRECTED PRN Administration Keep Vein Open Discontinued Medications Generic Name Dose Route Start Last Admin Trade Name Freq PRN Reason Stop Dose Admin Hydromorphone HCl 1 mg 09/23/20 07:10 09/23/20 07:24 Hydromorphone 1 Mg/Ml Syringe IVPUSH 09/23/20 07:11 1 mg ONETIME ONE Administration Methylprednisolone Sodium Succinate 125 mg 09/23/20 08:05 Methylprednisolone Sodium Succinate 125 Mg/2 Ml Sdv IVPUSH 09/23/20 08:06 ONETIME ONE Ondansetron HCl 4 mg 09/23/20 07:09 09/23/20 07:22 Ondansetron 4 Mg/2 Ml Sdv IV 09/23/20 07:10 4 mg ONETIME ONE Administration - Re-Assessments/Exams Free Text/Narrative Re-Assessment/Exam: 09/23/20 08:06 Exam, Hx, and lab results are consistent with gout of the elbow. Departure - Departure Time of Disposition: 08:06 Disposition: Home, Self-Care 01 Condition: Good Clinical Impression: Acute gout of left elbow - Discharge Information *PRESCRIPTION DRUG MONITORING PROGRAM REVIEWED*: No *COPY OF PRESCRIPTION DRUG MONITORING REPORT IN PATIENT LORENZO: No Instructions: Low-Purine Eating Plan Forms: ED Department Discharge Additional Instructions: Rx: Prednisone 20mg *Take with meals. Rx: Hydrocodone APAP 5mg/325mg *Do not drive or work while under the influence of this medication. Try to quit smoking, as smoking increases gout risk and makes it harder to treat. Moist hot packs to left elbow. Follow up in clinic in 5 to 7 days for recheck if needed. Sepsis Event Note (ED) - Evaluation Sepsis Screening Result: No Definite Risk - Focused Exam Vital Signs: Vital Signs Temp Pulse Resp BP Pulse Ox 09/23/20 06:45 96.2 F L 112 H 16 163/92 H 98 - My Orders Last 24 Hours: My Active Orders 09/23/20 07:09 Peripheral IV Care [RC] . DIRECTED Sodium Chloride 0.9% [Saline Flush] 10 ml FLUSH ASDIRECTED PRN Peripheral IV Insertion Adult [OM.PC] Stat 09/23/20 08:05 Colchicine [Colcrys] 1.2 mg PO ONETIME ONE methylPREDNISolone Sod Succ [Solu-MEDROL] 125 mg IVPUSH ONETIME ONE - Assessment/Plan Last 24 Hours: My Active Orders 09/23/20 07:09 Peripheral IV Care [RC] . DIRECTED Sodium Chloride 0.9% [Saline Flush] 10 ml FLUSH ASDIRECTED PRN Peripheral IV Insertion Adult [OM.PC] Stat 09/23/20 08:05 Colchicine [Colcrys] 1.2 mg PO ONETIME ONE methylPREDNISolone Sod Succ [Solu-MEDROL] 125 mg IVPUSH ONETIME ONE
[2020-09-23] MEDS ORDERED: Sodium Chloride 0.9% 10 ML Syringe FLUSH PRN (07:09)
[2020-09-23] MEDS ORDERED: Ondansetron 4 MG/2 ML SDV IV ONE (07:09)
[2020-09-23] MEDS ORDERED: HYDROmorphone 1 MG/ML Syringe IVPUSH ONE (07:10)
[2020-09-23 07:56] LABS: ANION GAP 19.5 mEq/L (7-13); CHLORIDE,CL 99 mmol/L (98-107); SODIUM,NA 136 mmol/L (136-145)
[2020-09-23] MEDS ORDERED: Colchicine 0.6 MG Tab PO ONE (08:05)
[2020-09-23] MEDS ORDERED: methylPREDNISolone Sodium Succinate 125 MG/2 ML SDV IVPUSH ONE (08:05)
== END 2020-09-23 09:22 | disposition home or self-care (01) ==
LOC: DL.ED 06:37
DX: M10.9 Gout, unspecified (principal); Z72.0 Tobacco use; Z79.899 Other long term (current) drug therapy
CPT/HCPCS: 36415; 80053; 83605; 84550; 85025; 86140; 96374; 96375; 99283; 99283-25; A9270-GY; J1170; J2405; J2930

== ENCOUNTER 2020-10-11 08:44 | Emergency (ER) | payer BC, MEDICAID ==
[2020-10-11] MEDS ORDERED: Ketorolac 30 MG/ML SDV IVPUSH ONE (08:57)
[2020-10-11] MEDS ORDERED: HYDROmorphone 0.5 MG/0.5 ML Syringe IVPUSH ONE (08:58)
[2020-10-11 09:19] VITALS: BP 146/82; PULSE 95
[2020-10-11 09:26] LABS: ANION GAP 22.3 mEq/L (7-13); CHLORIDE,CL 100 mmol/L (98-107); SODIUM,NA 137 mmol/L (136-145)
--- NOTE | 2020-10-11 09:54 | EDM.PDOC ---
ED HPI GENERAL MEDICAL PROBLEM - General Chief Complaint: Lower Extremity Injury/Pain Stated Complaint: GOUT Time Seen by Provider: 10/11/20 08:55 - History of Present Illness INITIAL COMMENTS - FREE TEXT/NARRATIVE: Wallace is a 60-year-old man who presents with a recurrent episode of gout in his right knee. Wallace has had issues with gout in the past, normally is on allopurinol. He states he has not been on that medication in quite some time. He had a significant flareup of gout at the beginning of this month involving his elbow. Now he reports having significant pain in his right knee. There is been no redness, he has had no fevers or chills, no redness of any other part of the leg. Right Knee Pain Score (Numeric/FACES): 5 - Related Data Allergies Allergy/AdvReac Type Severity Reaction Status Date / Time No Known Allergies Allergy Verified 09/23/20 06:48 Home Meds: Home Meds Indomethacin 25 mg PO TID 5 Days #15 capsule 10/11/20 [Rx] Indomethacin [Indocin] 25 mg PO TID 10/11/20 [History] allopurinoL [Zyloprim] 100 mg PO DAILY #30 tab 10/11/20 [Rx] Past Medical History - Past Health History Medical/Surgical History: Denies Medical/Surgical History HEENT History: Reports: Impaired Vision Cardiovascular History: Reports: None Respiratory History: Reports: None Gastrointestinal History: Reports: Other (See Below) Other Gastrointestinal History: hepatitis C Genitourinary History: Reports: None Musculoskeletal History: Reports: Arthritis, Back Pain, Chronic, Gout Neurological History: Reports: None Psychiatric History: Reports: None Endocrine/Metabolic History: Reports: None Hematologic History: Reports: None Immunologic History: Reports: None Oncologic (Cancer) History: Reports: None Dermatologic History: Reports: None - Infectious Disease History Infectious Disease History: Reports: Hepatitis C - Past Surgical History Head Surgeries/Procedures: Reports: None Cardiovascular Surgical History: Reports: None Respiratory Surgical History: Reports: None GI Surgical History: Reports: None Male Surgical History: Reports: None Endocrine Surgical History: Reports: None Oncologic Surgical History: Reports: None Dermatological Surgical History: Reports: None Social & Family History - Family History Family Medical History: No Pertinent Family History - Tobacco Use Tobacco Use Status *Q: Current Every Day Tobacco User Years of Tobacco use: 50 Packs/Tins Daily: 1.5 - Caffeine Use Caffeine Use: Reports: None - Recreational Drug Use Recreational Drug Use: No - Living Situation & Occupation Living situation: Reports: with Family Occupation: Disabled Review of Systems - Review of Systems Review Of Systems: See Below (See HPI) ED EXAM, GENERAL - Physical Exam Exam: See Below Free Text/Narrative:: General: Wallace is a 60-year-old man in no acute distress Oropharynx is clear, mucous membranes are moist Right knee: He has significant swelling of that knee compared to the left. There is no significant ecchymosis or erythema noted, he has fairly good range of motion, albeit fairly painful. CBC and basic metabolic panel were both normal. Uric acid was still slightly elevated, but actually better than his previous values Peripheral IV was started, he was given 30 mg of IV Toradol as well as 0.5 mg of IV hydromorphone. After 1/2-hour, he was feeling much better. Course - Vital Signs Last Recorded V/S: Last Vital Signs Temp 95.8 F L 10/11/20 09:01 Pulse 95 10/11/20 09:15 Resp 20 10/11/20 09:01 BP 146/82 H 10/11/20 09:15 Pulse Ox 98 10/11/20 09:01 - Orders/Labs/Meds Orders: Active Orders 24 hr Category Date Time Status CBC WITH AUTO DIFF [HEME] Stat Lab 10/11/20 09:01 Results MANUAL DIFFERENTIAL QA/NC [HEME] Stat Lab 10/11/20 09:01 Results Labs: Laboratory Tests 10/11/20 10/11/20 Range/Units 09:01 09:01 WBC 13.7 H (5.0-10.0) 10^3/uL RBC 4.59 L (4.6-6.2) 10^6/uL Hgb 16.0 (14.0-18.0) g/dL Hct 43.7 (40.0-54.0) % MCV 95.2 D (80-100) fL MCH 34.9 H (27.0-34.0) pg MCHC 36.6 H (33.0-35.0) g/dL Plt Count 372 D (150-450) 10^3/uL Neut % (Auto) 62.4 (42.2-75.2) % Lymph % (Auto) 24.2 (20.5-50.1) % [place] % (Auto) 11.5 H (2-8) % Eos % (Auto) 0.5 L (1.0-3.0) % Baso % (Auto) 1.4 H (0.0-1.0) % Add Manual Diff Yes Neutrophils % (Manual) 70 (42-75) % Band Neutrophils % 1 % Lymphocytes % (Manual) 20 (20-50) % Monocytes % (Manual) 9 H (2-8) % Sodium 137 (136-145) mmol/L Potassium 4.3 (3.5-5.1) mmol/L Chloride 100 (98-107) mmol/L Carbon Dioxide 19 L (21-32) mmol/L Anion Gap 22.3 H (7-13) mEq/L BUN 4 L (7-18) mg/dL Creatinine 1.08 (0.70-1.30) mg/dL Est Cr Clr Drug Dosing 78.84 mL/min Estimated GFR (MDRD) > 60 Glucose 159 H (70-99) mg/dL Uric Acid 7.2 (3.5-7.2) mg/dL Calcium 8.9 (8.5-10.1) mg/dL Meds: Medications Discontinued Medications Generic Name Dose Route Start Last Admin Trade Name Freq PRN Reason Stop Dose Admin Hydromorphone HCl 0.5 mg 10/11/20 08:58 10/11/20 09:06 Hydromorphone 0.5 Mg/0.5 Ml Syringe IVPUSH 10/11/20 08:59 0.5 mg ONETIME ONE Administration Ketorolac Tromethamine 30 mg 10/11/20 08:57 10/11/20 09:06 Ketorolac 30 Mg/Ml Sdv IVPUSH 10/11/20 08:58 30 mg ONETIME ONE Administration Departure - Departure Time of Disposition: 09:51 Disposition: Home, Self-Care 01 Clinical Impression: Acute gout Qualifiers: Gout site: foot Gout etiology: unspecified cause Laterality: left Qualified Code(s): M10.9 - Gout, unspecified - Discharge Information *PRESCRIPTION DRUG MONITORING PROGRAM REVIEWED*: Not Applicable *COPY OF PRESCRIPTION DRUG MONITORING REPORT IN PATIENT LORENZO: Not Applicable Prescriptions: Indomethacin 25 mg PO TID 5 Days #15 capsule allopurinoL [Zyloprim] 100 mg PO DAILY #30 tab Instructions: Low-Purine Eating Plan Forms: ED Department Discharge Sepsis Event Note (ED) - Evaluation Sepsis Screening Result: No Definite Risk - Focused Exam Vital Signs: Vital Signs Temp Pulse Resp BP Pulse Ox 10/11/20 09:15 95 146/82 H 10/11/20 09:01 95.8 F L 120 H 20 145/118 H 98 - Problem List & Annotations (1) Acute gout SNOMED Code(s): 260900934 Code(s): M10.9 - GOUT, UNSPECIFIED Status: Acute Qualifiers: Gout site: knee Laterality: right - Problem List Review Problem List Initiated/Reviewed/Updated: Yes - My Orders Last 24 Hours: My Active Orders 10/11/20 09:01 CBC WITH AUTO DIFF [HEME] Stat MANUAL DIFFERENTIAL QA/NC [HEME] Stat - Assessment/Plan Last 24 Hours: My Active Orders 10/11/20 09:01 CBC WITH AUTO DIFF [HEME] Stat MANUAL DIFFERENTIAL QA/NC [HEME] Stat Assessment:: 1. Acute gout, R knee Plan: 1. As above, hopefully the Toradol will help him throughout the rest of today. I sent him a prescription for indomethacin, 25 mg 3 times daily to be used as needed. 2. Once this gouty flare has resolved, he will get back on his allopurinol, 100 mg p.o. daily. He will follow with his primary care provider if he is not improving.
== END 2020-10-11 10:10 | disposition home or self-care (01) ==
LOC: DL.ED 08:44
DX: M10.062 Idiopathic gout, left knee (principal); Z72.0 Tobacco use
CPT/HCPCS: 36415; 80048; 84550; 85025; 96374; 96375; 99283; 99283-25; J1170; J1885

== ENCOUNTER 2020-10-12 07:18 | Emergency (ER) | payer BC, MEDICAID ==
[2020-10-12] MEDS ORDERED: Acetaminophen/HYDROcodone 325-5 MG Tab PO ONE (07:19)
[2020-10-12] MEDS ORDERED: Indomethacin 25 MG Cap PO ONE (07:19)
[2020-10-12] MEDS ORDERED: HYDROmorphone 0.5 MG/0.5 ML Syringe IVPUSH ONE ×2 (07:30→09:52)
[2020-10-12] MEDS ORDERED: Ketorolac 30 MG/ML SDV IVPUSH ONE (07:30)
[2020-10-12 07:31] VITALS: BP 136/84; PULSE 96
[2020-10-12] MEDS ORDERED: Lactated Ringers 1,000 ML IV ONE (07:32)
[2020-10-12] MEDS ORDERED: methylPREDNISolone Sodium Succinate 40 MG/1 ML SDV IVPUSH ONE (07:37)
[2020-10-12] MEDS ORDERED: Lidocaine 5% 700 MG Patch TRDERM ONE (08:40)
[2020-10-12] MEDS ORDERED: Indomethacin 25 MG Cap ONE (10:09)
--- NOTE | 2020-10-12 10:51 | EDM.PDOC ---
ED HPI GENERAL MEDICAL PROBLEM - General Chief Complaint: Lower Extremity Injury/Pain Stated Complaint: RT KNEE PAIN Time Seen by Provider: 10/12/20 08:00 - History of Present Illness INITIAL COMMENTS - FREE TEXT/NARRATIVE: Wallace is a 60-year-old man who presents again back to the ER with severe pain in his right knee. Wallace has a history of severe gout, but unfortunately has not been on allopurinol recently as he ran out of that prescription. He developed severe pain and swelling in his right knee 2 days ago, and has been struggling with this since. He was seen in the ER yesterday, and given IV Toradol as well as pain medication. He was sent home on indomethacin, but he was not yet able to pickle maker that prescription. Right Knee Pain Score (Numeric/FACES): 7 - Related Data Allergies Allergy/AdvReac Type Severity Reaction Status Date / Time No Known Allergies Allergy Verified 10/12/20 07:33 Home Meds: Home Meds Indomethacin 25 mg PO TID 5 Days #15 capsule 10/11/20 [Rx] Indomethacin [Indocin] 25 mg PO TID 10/11/20 [History] allopurinoL [Zyloprim] 100 mg PO DAILY #30 tab 10/11/20 [Rx] Hydrocodone/Acetaminophen [Hydrocodone-Acetamin 10-325 mg] 0.5 - 1 tab PO Q8H PRN 3 Days #9 tablet 10/12/20 [Rx] Past Medical History - Past Health History Medical/Surgical History: Denies Medical/Surgical History HEENT History: Reports: Impaired Vision Cardiovascular History: Reports: None Respiratory History: Reports: COPD Gastrointestinal History: Reports: Other (See Below) Other Gastrointestinal History: hepatitis C Genitourinary History: Reports: None Musculoskeletal History: Reports: Arthritis, Back Pain, Chronic, Gout Neurological History: Reports: None Psychiatric History: Reports: None Endocrine/Metabolic History: Reports: None Hematologic History: Reports: None Immunologic History: Reports: None Oncologic (Cancer) History: Reports: None Dermatologic History: Reports: None - Infectious Disease History Infectious Disease History: Reports: Hepatitis C - Past Surgical History Head Surgeries/Procedures: Reports: None Cardiovascular Surgical History: Reports: None Respiratory Surgical History: Reports: None GI Surgical History: Reports: None Male Surgical History: Reports: None Endocrine Surgical History: Reports: None Oncologic Surgical History: Reports: None Dermatological Surgical History: Reports: None Social & Family History - Family History Family Medical History: No Pertinent Family History - Tobacco Use Tobacco Use Status *Q: Current Every Day Tobacco User Years of Tobacco use: 30 Packs/Tins Daily: 0.5 - Caffeine Use Caffeine Use: Reports: None - Living Situation & Occupation Living situation: Reports: with Family Occupation: Disabled Review of Systems - Review of Systems Review Of Systems: Comprehensive ROS is negative, except as noted in HPI. ED EXAM, GENERAL - Physical Exam Exam: See Below Free Text/Narrative:: General: Wallace is a 60-year-old man in no acute distress Oropharynx is clear, mucous membranes are moist Heart: Regular rate and rhythm, no murmurs Right knee: It is still significantly swollen compared to the left. There is some mild erythema, but no significant induration or signs of fluctuance. Peripheral IV was started, he was given a total of 1 mg of IV hydromorphone over about 2-hour period of time. He was also given 30 mg of IV Toradol, and 40 mg of IV methylprednisolone. He was then able to successfully ambulate and was discharged home. Course - Vital Signs Last Recorded V/S: Last Vital Signs Temp 96.5 F L 10/12/20 07:30 Pulse 96 10/12/20 07:30 Resp 24 H 10/12/20 07:30 BP 136/84 10/12/20 07:30 Pulse Ox 96 10/12/20 07:30 - Orders/Labs/Meds Meds: Medications Discontinued Medications Generic Name Dose Route Start Last Admin Trade Name Humza PRN Reason Stop Dose Admin Hydrocodone Bitart/Acetaminophen Confirm 10/12/20 10:53 Acetaminophen/Hydrocodone 325-5 Mg Tab Administered 10/12/20 10:54 Dose 2 tab .ROUTE .STK-MED ONE Hydrocodone Bitart/Acetaminophen 2 tab 10/12/20 07:19 Acetaminophen/Hydrocodone 325-5 Mg Tab PO 10/12/20 07:20 .STK-MED ONE Hydromorphone HCl 0.5 mg 10/12/20 07:30 10/12/20 07:41 Hydromorphone 0.5 Mg/0.5 Ml Syringe IVPUSH 10/12/20 07:31 0.5 mg ONETIME ONE Administration Hydromorphone HCl 0.5 mg 10/12/20 09:52 10/12/20 10:03 Hydromorphone 0.5 Mg/0.5 Ml Syringe IVPUSH 10/12/20 09:53 0.5 mg ONETIME ONE Administration Lactated Ringer's 1,000 mls @ 999 mls/hr 10/12/20 07:32 10/12/20 07:41 Ringers, Lactated IV 10/12/20 08:32 999 mls/hr .BOLUS ONE Administration Indomethacin Confirm 10/12/20 10:09 Indomethacin 25 Mg Cap Administered 10/12/20 10:10 Dose 75 mg .ROUTE .STK-MED ONE Indomethacin 25 mg 10/12/20 07:19 Indomethacin 25 Mg Cap PO 10/12/20 07:20 .STK-MED ONE Ketorolac Tromethamine 30 mg 10/12/20 07:30 10/12/20 07:41 Ketorolac 30 Mg/Ml Sdv IVPUSH 10/12/20 07:31 30 mg ONETIME ONE Administration Lidocaine 700 mg 10/12/20 08:40 10/12/20 08:52 Lidocaine 5% 700 Mg Patch TRDERM 10/12/20 08:41 700 mg ONETIME ONE Administration Methylprednisolone Sodium Succinate 40 mg 10/12/20 07:37 10/12/20 07:46 Methylprednisolone Sodium Succinate 40 Mg/1 Ml Sdv IVPUSH 10/12/20 07:38 40 mg ONETIME ONE Administration Departure - Departure Time of Disposition: 10:45 Disposition: Home, Self-Care 01 Clinical Impression: Gout of right knee Qualifiers: Encounter type: subsequent encounter Chronicity: acute - Discharge Information *PRESCRIPTION DRUG MONITORING PROGRAM REVIEWED*: Yes *COPY OF PRESCRIPTION DRUG MONITORING REPORT IN PATIENT LORENZO: No Prescriptions: Hydrocodone/Acetaminophen [Hydrocodone-Acetamin 10-325 mg] 0.5 - 1 tab PO Q8H PRN 3 Days #9 tablet PRN Reason: Pain Instructions: Low-Purine Eating Plan Referrals: PCP,None [Primary Care Provider] - Forms: ED Department Discharge Sepsis Event Note (ED) - Evaluation Sepsis Screening Result: No Definite Risk - Problem List & Annotations (1) Gout of right knee SNOMED Code(s): 465801306, 017270167 Code(s): M10.9 - GOUT, UNSPECIFIED Status: Acute Qualifiers: Encounter type: subsequent encounter Chronicity: acute - Problem List Review Problem List Initiated/Reviewed/Updated: Yes - Assessment/Plan Assessment:: 1. 60-year-old man with severe acute gout of the right knee Plan: 1. I am hopeful that the combination of the second dose of Toradol as well as the dose of IV methylprednisolone today will help decrease the inflammation enough to control his pain. He will start taking the indomethacin this afternoon. Once this acute flare has ceased, he will start taking the allopurinol that was given as a prescription to him yesterday 2. Wallace was also sent home with a prescription for hydrocodone/APAP, , / to 1 tablet every 8 hours as needed, #9. The [place] prescription drug monitoring program website was checked prior to this prescription being issued, Wallace has had no recent prescriptions for narcotics or other controlled substances.
[2020-10-12] MEDS ORDERED: Acetaminophen/HYDROcodone 325-5 MG Tab ONE (10:53)
== END 2020-10-12 10:59 | disposition home or self-care (01) ==
LOC: DL.ED 07:18
DX: M10.061 Idiopathic gout, right knee (principal); J44.9 Chronic obstructive pulmonary disease, unspecified; Z72.0 Tobacco use
CPT/HCPCS: 96374; 96375; 96376; 99283; 99283-25; A9270-GY; J1170; J1885; J2920; J7120

== ENCOUNTER 2020-10-21 06:45 | Observation (INO) | payer BC, MEDICAID ==
[2020-10-21] MEDS ORDERED: Sodium Chloride 0.9% 1,000 ML IV ONE (07:18)
--- NOTE | 2020-10-21 07:23 | EDM.PDOC ---
ED HPI GENERAL MEDICAL PROBLEM - General Chief Complaint: Lower Extremity Injury/Pain Stated Complaint: AMBULANCE Time Seen by Provider: 10/21/20 07:22 Source of Information: Reports: Patient, Old Records, RN History Limitations: Reports: No Limitations - History of Present Illness INITIAL COMMENTS - FREE TEXT/NARRATIVE: Wallace is a 60 y/o male with a history of gout who presents to the ED via [facility] with complaints of pain in his bilateral knees and left elbow. The patient was examined in this facility twice last week and was diagnosed with a gout flair; he was subsequently started on indomethacin and was given a prescription of allopurinol to start once his flair had subsided. The patient reports his indomethacin is no longer helping with the pain in his joints. He reports he has not eaten or drank water in 5 days as he was unable to walk within his home. Additionally, the patient attest to shaking chills and diarrhea. He denies fever, palpitations, shortness of breath, nausea, vomiting, or abdominal pain. Bilateral Knee Pain Score (Numeric/FACES): 7 - Related Data Allergies Allergy/AdvReac Type Severity Reaction Status Date / Time No Known Allergies Allergy Verified 10/21/20 07:05 Home Meds: Home Meds Acetaminophen/HYDROcodone [[place] 325-10 MG] 1 tab PO DAILY PRN 10/21/20 [History] Indomethacin 50 mg PO TID 10/21/20 [History] allopurinoL [Zyloprim] 200 mg PO BID 10/21/20 [History] Past Medical History - Past Health History Medical/Surgical History: Denies Medical/Surgical History HEENT History: Reports: Impaired Vision Cardiovascular History: Reports: None Respiratory History: Reports: COPD Gastrointestinal History: Reports: Other (See Below) Other Gastrointestinal History: hepatitis C Genitourinary History: Reports: None Musculoskeletal History: Reports: Arthritis, Back Pain, Chronic, Gout Neurological History: Reports: None Psychiatric History: Reports: None Endocrine/Metabolic History: Reports: None Hematologic History: Reports: None Immunologic History: Reports: None Oncologic (Cancer) History: Reports: None Dermatologic History: Reports: None - Infectious Disease History Infectious Disease History: Reports: Hepatitis C - Past Surgical History Head Surgeries/Procedures: Reports: None Cardiovascular Surgical History: Reports: None Respiratory Surgical History: Reports: None GI Surgical History: Reports: None Male Surgical History: Reports: None Endocrine Surgical History: Reports: None Oncologic Surgical History: Reports: None Dermatological Surgical History: Reports: None Social & Family History - Family History Family Medical History: No Pertinent Family History - Tobacco Use Tobacco Use Status *Q: Current Every Day Tobacco User Years of Tobacco use: 35 Packs/Tins Daily: 1 - Caffeine Use Caffeine Use: Reports: Coffee - Recreational Drug Use Recreational Drug Use: No - Living Situation & Occupation Living situation: Reports: with Family Occupation: Disabled Review of Systems - Review of Systems Review Of Systems: Comprehensive ROS is negative, except as noted in HPI. ED EXAM, GENERAL - Physical Exam Exam: See Below Exam Limited By: No Limitations General Appearance: Alert, Obese, Other (Unkept and disheveled) Eye Exam: Bilateral Eye: EOMI, Normal Inspection, PERRL (3mm) Ears: Normal External Exam, Hearing Grossly Normal Nose: Normal Inspection, Normal Mucosa, No Blood Throat/Mouth: Normal Voice, No Airway Compromise. No: Normal Oropharynx (Dry mucous membranes) Head: Atraumatic, Normocephalic Neck: Normal Inspection, Supple, Non-Tender, Full Range of Motion Respiratory/Chest: No Respiratory Distress, Lungs Clear, Normal Breath Sounds, No Accessory Muscle Use, Chest Non-Tender Cardiovascular: Normal Peripheral Pulses, Regular Rate, Rhythm, No Gallop, No JVD, No Murmur, No Rub Peripheral Pulses: 2+: Radial (L), Radial (R), Dorsalis Pedis (L), Dorsalis Pedis (R) GI/Abdominal: Soft, No Distention, No Abnormal Bruit, No Mass, Pelvis Stable, Abnormal Bowel Sounds (Hyperactive ) Back Exam: Normal Inspection, Full Range of Motion Extremities: Joint Swelling (To left knee and left elbow), Arm Pain (To left posterior elbow), Leg Pain (To bilateral anterior knees), Limited Range of Motion, Increased Warmth (To left knee and elbow), Redness (To left knee and elbow) Neurological: Alert, Oriented, CN II-XII Intact, Normal Cognition, No Motor/Sensory Deficits, Abnormal Gait (Unable to ambulate due to pain) Psychiatric: Normal Affect, Depressed Mood Skin Exam: Warm, Dry, Intact, Erythema (Left knee and elbow), Increased Warmth (Left knee and elbow). No: Jaundice, Mottled, Pallor, Petechiae Course - Vital Signs Last Recorded V/S: Last Vital Signs Temp 97.1 F 10/21/20 17:13 Pulse 70 10/21/20 17:13 Resp 17 10/21/20 17:13 BP 132/81 10/21/20 17:13 Pulse Ox 96 10/21/20 17:13 - Orders/Labs/Meds Orders: Active Orders 24 hr Category Date Time Status Admission Diagnosis [ADT] Stat ADT 10/21/20 08:30 Ordered Admission Status [Patient Status] [ADT] Routine ADT 10/21/20 08:30 Active CULTURE BLOOD [BC] Stat Lab 10/21/20 07:31 Received DRUG SCREEN URINE BIORAD [URCHEM] Urgent Lab 10/21/20 07:17 Ordered UA RFX TABBY AND CULT IF INDIC [URIN] Stat Lab 10/21/20 07:17 Ordered Medication Orders Acetaminophen (Acetaminophen 325 Mg Tab) 650 mg PO Q4H PRN PRN Reason: Pain (Mild 1-3)/fever Colchicine (Colchicine 0.6 Mg Tab) 1.2 mg PO DAILY [facility] Last Admin: 10/21/20 11:24 Dose: 1.2 mg Documented by: JULIO Enoxaparin Sodium (Enoxaparin 40 Mg/0.4 Ml Syringe) 40 mg SUBCUT DAILY [facility] Sodium Chloride (Normal Saline) 1,000 mls @ 100 mls/hr IV ASDIRECTED [facility] Last Admin: 10/21/20 11:26 Dose: 100 mls/hr Documented by: JULIO Indomethacin (Indomethacin 25 Mg Cap) 50 mg PO TIDMEALS [facility] Last Admin: 10/21/20 17:12 Dose: 50 mg Documented by: Admin: 10/21/20 11:24 Dose: 50 mg Documented by: JULIO Miscellaneous Information (Remove Nicotine Patch) 1 ea TRDERM DAILY [facility] Nicotine (Nicotine 21 Mg/24 Hr Patch) 21 mg TRDERM DAILY PRN PRN Reason: Smoking Cessation Last Admin: 10/21/20 17:11 Dose: 21 mg Documented by: JULIO Ondansetron HCl (Ondansetron 4 Mg/2 Ml Sdv) 4 mg IVPUSH Q4H PRN PRN Reason: Nausea/Vomiting Oxycodone/Acetaminophen (Acetaminophen/Oxycodone 325-5 Mg Tab) 1 tab PO Q4H PRN PRN Reason: Pain (moderate 4-6) Pantoprazole Sodium (Pantoprazole 40 Mg Tab.Cr) 40 mg PO ACBREAKFAST [place] Prednisone (Prednisone 20 Mg Tab) 60 mg PO WITHBREAKFAST [place] Last Admin: 10/21/20 11:24 Dose: 60 mg Documented by: JULIO Senna/Docusate Sodium (Docusate Sodium/Sennosides 50-8.6 Mg Tab) 2 tab PO BID PRN PRN Reason: Constipation Sodium Chloride (Sodium Chloride 0.9% 10 Ml Syringe) 10 ml FLUSH ASDIRECTED PRN PRN Reason: Keep Vein Open Labs: Laboratory Tests 10/21/20 10/21/20 10/21/20 Range/Units 07:19 07:31 07:31 WBC 13.0 H (5.0-10.0) 10^3/uL RBC 4.74 (4.6-6.2) 10^6/uL Hgb 16.0 (14.0-18.0) g/dL Hct 47.0 (40.0-54.0) % MCV 99.2 D (80-100) fL MCH 33.8 (27.0-34.0) pg MCHC 34.0 (33.0-35.0) g/dL Plt Count 285 D (150-450) 10^3/uL Neut % (Auto) 71.4 (42.2-75.2) % Lymph % (Auto) 12.7 L (20.5-50.1) % Desha % (Auto) 15.3 H (2-8) % Eos % (Auto) 0.2 L (1.0-3.0) % Baso % (Auto) 0.4 (0.0-1.0) % Add Manual Diff Yes Neutrophils % (Manual) 70 (42-75) % Band Neutrophils % 3 % Lymphocytes % (Manual) 16 L (20-50) % Monocytes % (Manual) 11 H (2-8) % ESR (0-15) mm/hr Sodium 137 (136-145) mmol/L Potassium 3.7 (3.5-5.1) mmol/L Chloride 96 L (98-107) mmol/L Carbon Dioxide 23 (21-32) mmol/L Anion Gap 21.7 H (7-13) mEq/L BUN 16 (7-18) mg/dL Creatinine 1.30 (0.70-1.30) mg/dL Est Cr Clr Drug Dosing 65.50 mL/min Estimated GFR (MDRD) 56 BUN/Creatinine Ratio 12.3 (No establ ref range) Glucose 133 H (70-99) mg/dL POC Glucose 145 H (70-99) mg/dL Lactic Acid (0.4-2.0) mmol/L Uric Acid (3.5-7.2) mg/dL Calcium 9.3 (8.5-10.1) mg/dL Magnesium (1.8-2.4) mg/dL Total Bilirubin 1.2 H (0.2-1.0) mg/dL AST 30 (15-37) U/L ALT 43 (16-63) U/L Alkaline Phosphatase 111 (46-116) U/L C-Reactive Protein (0.0-0.9) mg/dL Total Protein 8.5 H (6.4-8.2) g/dL Albumin 3.2 L (3.4-5.0) g/dL Globulin 5.3 Albumin/Globulin Ratio 0.60 Ethyl Alcohol (0) mg/dL SARS-CoV-2 RNA (CHEMA) (NEGATIVE) 10/21/20 10/21/20 10/21/20 Range/Units 07:31 07:31 07:31 WBC (5.0-10.0) 10^3/uL RBC (4.6-6.2) 10^6/uL Hgb (14.0-18.0) g/dL Hct (40.0-54.0) % MCV (80-100) fL MCH (27.0-34.0) pg MCHC (33.0-35.0) g/dL Plt Count (150-450) 10^3/uL Neut % (Auto) (42.2-75.2) % Lymph % (Auto) (20.5-50.1) % Desha % (Auto) (2-8) % Eos % (Auto) (1.0-3.0) % Baso % (Auto) (0.0-1.0) % Add Manual Diff Neutrophils % (Manual) (42-75) % Band Neutrophils % % Lymphocytes % (Manual) (20-50) % Monocytes % (Manual) (2-8) % ESR 66 H (0-15) mm/hr Sodium (136-145) mmol/L Potassium (3.5-5.1) mmol/L Chloride (98-107) mmol/L Carbon Dioxide (21-32) mmol/L Anion Gap (7-13) mEq/L BUN (7-18) mg/dL Creatinine (0.70-1.30) mg/dL Est Cr Clr Drug Dosing mL/min Estimated GFR (MDRD) BUN/Creatinine Ratio (No establ ref range) Glucose (70-99) mg/dL POC Glucose (70-99) mg/dL Lactic Acid 2.9 H* (0.4-2.0) mmol/L Uric Acid 8.2 H (3.5-7.2) mg/dL Calcium (8.5-10.1) mg/dL Magnesium 2.0 (1.8-2.4) mg/dL Total Bilirubin (0.2-1.0) mg/dL AST (15-37) U/L ALT (16-63) U/L Alkaline Phosphatase (46-116) U/L C-Reactive Protein (0.0-0.9) mg/dL Total Protein (6.4-8.2) g/dL Albumin (3.4-5.0) g/dL Globulin Albumin/Globulin Ratio Ethyl Alcohol < 3 (0) mg/dL SARS-CoV-2 RNA (CHEMA) (NEGATIVE) 10/21/20 10/21/20 Range/Units 07:31 08:43 WBC (5.0-10.0) 10^3/uL RBC (4.6-6.2) 10^6/uL Hgb (14.0-18.0) g/dL Hct (40.0-54.0) % MCV (80-100) fL MCH (27.0-34.0) pg MCHC (33.0-35.0) g/dL Plt Count (150-450) 10^3/uL Neut % (Auto) (42.2-75.2) % Lymph % (Auto) (20.5-50.1) % Desha % (Auto) (2-8) % Eos % (Auto) (1.0-3.0) % Baso % (Auto) (0.0-1.0) % Add Manual Diff Neutrophils % (Manual) (42-75) % Band Neutrophils % % Lymphocytes % (Manual) (20-50) % Monocytes % (Manual) (2-8) % ESR (0-15) mm/hr Sodium (136-145) mmol/L Potassium (3.5-5.1) mmol/L Chloride (98-107) mmol/L Carbon Dioxide (21-32) mmol/L Anion Gap (7-13) mEq/L BUN (7-18) mg/dL Creatinine (0.70-1.30) mg/dL Est Cr Clr Drug Dosing mL/min Estimated GFR (MDRD) BUN/Creatinine Ratio (No establ ref range) Glucose (70-99) mg/dL POC Glucose (70-99) mg/dL Lactic Acid (0.4-2.0) mmol/L Uric Acid (3.5-7.2) mg/dL Calcium (8.5-10.1) mg/dL Magnesium (1.8-2.4) mg/dL Total Bilirubin (0.2-1.0) mg/dL AST (15-37) U/L ALT (16-63) U/L Alkaline Phosphatase (46-116) U/L C-Reactive Protein 20.5 H (0.0-0.9) mg/dL Total Protein (6.4-8.2) g/dL Albumin (3.4-5.0) g/dL Globulin Albumin/Globulin Ratio Ethyl Alcohol (0) mg/dL SARS-CoV-2 RNA (CHEMA) Negative (NEGATIVE) Meds: Medications Generic Name Dose Route Start Last Admin Trade Name Freq PRN Reason Stop Dose Admin Acetaminophen 650 mg 10/21/20 10:00 Acetaminophen 325 Mg Tab PO Q4H PRN Pain (Mild 1-3)/fever Colchicine 1.2 mg 10/21/20 11:00 10/21/20 11:24 Colchicine 0.6 Mg Tab PO 1.2 mg DAILY [facility] Administration Enoxaparin Sodium 40 mg 10/22/20 09:00 Enoxaparin 40 Mg/0.4 Ml Syringe SUBCUT DAILY [facility] Sodium Chloride 1,000 mls @ 100 mls/hr 10/21/20 10:00 10/21/20 11:26 Normal Saline IV 100 mls/hr ASDIRECTED [facility] Administration Indomethacin 50 mg 10/21/20 12:00 10/21/20 17:12 Indomethacin 25 Mg Cap PO 50 mg TIDMEALS [facility] Administration Miscellaneous Information 1 ea 10/22/20 09:00 Remove Nicotine Patch TRDERM DAILY [facility] Nicotine 21 mg 10/21/20 14:08 10/21/20 17:11 Nicotine 21 Mg/24 Hr Patch TRDERM 21 mg DAILY PRN Administration Smoking Cessation Ondansetron HCl 4 mg 10/21/20 10:00 Ondansetron 4 Mg/2 Ml Sdv IVPUSH Q4H PRN Nausea/Vomiting Oxycodone/Acetaminophen 1 tab 10/21/20 10:00 Acetaminophen/Oxycodone 325-5 Mg Tab PO Q4H PRN Pain (moderate 4-6) Pantoprazole Sodium 40 mg 10/22/20 06:00 Pantoprazole 40 Mg Tab.Cr PO ACBREAKFAST [place] Prednisone 60 mg 10/21/20 11:00 10/21/20 11:24 Prednisone 20 Mg Tab PO 60 mg WITHBREAKFAST [place] Administration Senna/Docusate Sodium 2 tab 10/21/20 19:43 Docusate Sodium/Sennosides 50-8.6 Mg Tab PO BID PRN Constipation Sodium Chloride 10 ml 10/21/20 10:00 Sodium Chloride 0.9% 10 Ml Syringe FLUSH ASDIRECTED PRN Keep Vein Open Discontinued Medications Generic Name Dose Route Start Last Admin Trade Name Freq PRN Reason Stop Dose Admin Hydromorphone HCl 1 mg 10/21/20 08:11 10/21/20 08:21 Hydromorphone 1 Mg/Ml Syringe IVPUSH 10/21/20 08:12 1 mg ONETIME ONE Administration Sodium Chloride 1,000 mls @ 999 mls/hr 10/21/20 07:18 10/21/20 07:24 Normal Saline IV 10/21/20 08:18 999 mls/hr .BOLUS ONE Administration Pantoprazole Sodium 40 mg/ 100 mls @ 200 mls/hr 10/21/20 08:12 10/21/20 08:21 Sodium Chloride IV 10/21/20 08:41 200 mls/hr ONETIME ONE Administration Ketorolac Tromethamine 30 mg 10/21/20 07:32 10/21/20 07:40 Ketorolac 30 Mg/Ml Sdv IVPUSH 10/21/20 07:33 30 mg ONETIME ONE Administration Methylprednisolone Sodium Succinate 125 mg 10/21/20 08:11 10/21/20 08:21 Methylprednisolone Sodium Succinate 125 Mg/2 Ml Sdv IVPUSH 10/21/20 08:12 125 mg ONETIME ONE Administration - Re-Assessments/Exams Free Text/Narrative Re-Assessment/Exam: 10/21/20 NS 1L bolus. Ketorolac 30 mg IV administered while labs pending. Patient verbalized no improvement in pain. Solu-Medrol 125 mg IVP and Dilaudid 1mg IVP administered. Given failed outpatient treatment, case discussed with Dr. Cruz who kindly agreed to accept patient for observation. Findings of examination, lab work, and discussion with Dr. Cruz reviewed with patient. Patient verbalized understanding and agreement with the plan of care. Departure - Departure Time of Disposition: 08:38 Disposition: Refer to Observation Condition: Fair Clinical Impression: Gout attack Qualifiers: Gout site: multiple sites Gout etiology: idiopathic Qualified Code(s): M10.09 - Idiopathic gout, multiple sites - Discharge Information Sepsis Event Note (ED) - Evaluation Sepsis Screening Result: No Definite Risk - My Orders Last 24 Hours: My Active Orders 10/21/20 07:17 DRUG SCREEN URINE BIORAD [URCHEM] Urgent UA RFX TABBY AND CULT IF INDIC [URIN] Stat 10/21/20 07:31 CULTURE BLOOD [BC] Stat 10/21/20 08:30 Admission Diagnosis [ADT] Stat Admission Status [Patient Status] [ADT] Routine - Assessment/Plan Last 24 Hours: My Active Orders 10/21/20 07:17 DRUG SCREEN URINE BIORAD [URCHEM] Urgent UA RFX TABBY AND CULT IF INDIC [URIN] Stat 10/21/20 07:31 CULTURE BLOOD [BC] Stat 10/21/20 08:30 Admission Diagnosis [ADT] Stat Admission Status [Patient Status] [ADT] Routine
[2020-10-21] MEDS ORDERED: Ketorolac 30 MG/ML SDV IVPUSH ONE (07:32)
[2020-10-21 07:59] LABS: ANION GAP 21.7 mEq/L (7-13)
[2020-10-21] MEDS ORDERED: HYDROmorphone 1 MG/ML Syringe IVPUSH ONE (08:11)
[2020-10-21] MEDS ORDERED: methylPREDNISolone Sodium Succinate 125 MG/2 ML SDV IVPUSH ONE (08:11)
[2020-10-21] MEDS ORDERED: Pantoprazole 40 MG in Sodium Chloride 0.9% 100 ML IV ONE (08:12)
[2020-10-21] MEDS ORDERED: Acetaminophen/oxyCODONE 325-5 MG Tab PO PRN (10:00)
[2020-10-21] MEDS ORDERED: Sodium Chloride 0.9% 10 ML Syringe FLUSH PRN (10:00)
[2020-10-21] MEDS ORDERED: Ondansetron 4 MG/2 ML SDV IVPUSH PRN (10:00)
[2020-10-21] MEDS ORDERED: Acetaminophen 325 MG Tab PO PRN (10:00)
--- NOTE | 2020-10-21 10:10 | PCM.HP ---
H&P History of Present Illness - General Date of Service: 10/21/20 Admit Problem/Dx: Admission Diagnosis/Problem Admission Diagnosis/Problem Gout of multiple sites - History of Present Illness Initial Comments - Free Text/Narative: The patient is a 60-year-old male who presents to complain of bilateral knee pain. He states that his left knee started hurting 3 days prior to hospitalization. He states that his right knee started hurting approximately 2 weeks prior to hospitalization. He states that he also developed left elbow pain on October 20, 2020. Patient [place] fever, rigors, nausea, vomiting, cough, whe danni, abdominal pain, diarrhea, myalgia, chest pain, dyspnea, or any other constitutional complaint. Patient has known history of gout. Patient was recently seen in the emergency department and treated on outpatient basis but appears to have failed outpatient therapy however his compliance is quest ionable. He presents for further evaluation Bilateral Knee Pain Score (Numeric/FACES): 7 - Related Data Allergies/Adverse Reactions: Allergies Allergy/AdvReac Type Severity Reaction Status Date / Time No Known Allergies Allergy Verified 10/21/20 07:05 Home Medications: Home Meds Acetaminophen/HYDROcodone [[place] 325-10 MG] 1 tab PO DAILY PRN 10/21/20 [History] Indomethacin 50 mg PO TID 10/21/20 [History] allopurinoL [Zyloprim] 200 mg PO BID 10/21/20 [History] Past Medical History - Past Health History Medical/Surgical History: Denies Medical/Surgical History HEENT History: Reports: Impaired Vision Cardiovascular History: Reports: None Respiratory History: Reports: COPD Gastrointestinal History: Reports: Other (See Below) Other Gastrointestinal History: hepatitis C Genitourinary History: Reports: None Musculoskeletal History: Reports: Arthritis, Back Pain, Chronic, Gout Neurological History: Reports: None Psychiatric History: Reports: None Endocrine/Metabolic History: Reports: None Hematologic History: Reports: None Immunologic History: Reports: None Oncologic (Cancer) History: Reports: None Dermatologic History: Reports: None - Infectious Disease History Infectious Disease History: Reports: Hepatitis C - Past Surgical History Head Surgeries/Procedures: Reports: None Cardiovascular Surgical History: Reports: None Respiratory Surgical History: Reports: None GI Surgical History: Reports: None Male Surgical History: Reports: None Endocrine Surgical History: Reports: None Oncologic Surgical History: Reports: None Dermatological Surgical History: Reports: None Social & Family History - Family History Family Medical History: No Pertinent Family History - Tobacco Use Tobacco Use Status *Q: Current Every Day Tobacco User Years of Tobacco use: 35 Packs/Tins Daily: 1 - Caffeine Use Caffeine Use: Reports: Coffee - Recreational Drug Use Recreational Drug Use: No - Living Situation & Occupation Living situation: Reports: with Family Occupation: Disabled H&P Review of Systems - Review of Systems: Review Of Systems: See Below General: Reports: No Symptoms HEENT: Reports: No Symptoms Pulmonary: Reports: No Symptoms Cardiovascular: Reports: No Symptoms Gastrointestinal: Reports: No Symptoms Genitourinary: Reports: No Symptoms Musculoskeletal: Reports: Neck Pain, Arm Pain Skin: Reports: No Symptoms Psychiatric: Reports: No Symptoms Neurological: Reports: No Symptoms Hematologic/Lymphatic: Reports: No Symptoms Immunologic: Reports: No Symptoms Exam - Exam Exam: See Below - Vital Signs Vital Signs: Last Vital Signs Temp 96.6 F L 10/21/20 07:00 Pulse 98 10/21/20 07:00 Resp 16 10/21/20 07:00 BP 124/86 10/21/20 07:00 Pulse Ox 98 10/21/20 07:00 Weight: 232 lb 9.6 oz - Exam General: Alert, Oriented, 4 HEENT: PERRLA, Hearing Intact, Mucosa Moist & [place], Nares Patent, Normal Nasal Septum, Posterior Pharynx Clear, Conjunctiva Clear, EOMI, EACs Clear, TMs Clear Neck: Supple, Trachea Midline, 2 Lungs: Clear to Auscultation, Normal Respiratory Effort Cardiovascular: Regular Rate, Regular Rhythm GI/Abdominal Exam: Normal Bowel Sounds, Soft, Non-Tender, No Organomegaly, No Distention, No Abnormal Bruit, No Mass, Pelvis Stable Back Exam: Normal Inspection, Full Range of Motion, NT Extremities: Normal Inspection, Normal Range of Motion, Non-Tender, No Pedal Edema, Normal Capillary Refill Peripheral Pulses: 2+: Carotid (L), Carotid (R), Brachial (L), Brachial (R), Radial (L), Radial (R), Femoral (L), Femoral (R), Popliteal (L), Popliteal (R), Posterior Tibial (L), Posterior Tibial (R), Dorsalis Pedis (L), Dorsalis Pedis (R) Skin: Warm, Dry, Intact Neurological: Cranial Nerves Intact, Reflexes Equal Bilateral Neuro Extensive - Mental Status: Alert, Oriented x3, Normal Mood/Affect, Normal Cognition Neuro Extensive - Motor, Sensory, Reflexes: CN II-XII Intact, Normal Gait, Normal Reflexes DTR: 2+: Bicep (L), Bicep (R), Tricep (L), Tricep (R), Patella (L), Patella (R), Achilles (L), Achilles (R) Psychiatric: Alert, Normal Affect, Normal Mood - Patient Data Lab Results Last 24 hrs: Laboratory Results - last 24 hr 10/21/20 10/21/20 10/21/20 Range/Units 07:19 07:31 07:31 WBC 13.0 H (5.0-10.0) 10^3/uL RBC 4.74 (4.6-6.2) 10^6/uL Hgb 16.0 (14.0-18.0) g/dL Hct 47.0 (40.0-54.0) % MCV 99.2 D (80-100) fL MCH 33.8 (27.0-34.0) pg MCHC 34.0 (33.0-35.0) g/dL Plt Count 285 D (150-450) 10^3/uL Neut % (Auto) 71.4 (42.2-75.2) % Lymph % (Auto) 12.7 L (20.5-50.1) % [place] % (Auto) 15.3 H (2-8) % Eos % (Auto) 0.2 L (1.0-3.0) % Baso % (Auto) 0.4 (0.0-1.0) % Add Manual Diff Yes Neutrophils % (Manual) 70 (42-75) % Band Neutrophils % 3 % Lymphocytes % (Manual) 16 L (20-50) % Monocytes % (Manual) 11 H (2-8) % ESR (0-15) mm/hr Sodium 137 (136-145) mmol/L Potassium 3.7 (3.5-5.1) mmol/L Chloride 96 L (98-107) mmol/L Carbon Dioxide 23 (21-32) mmol/L Anion Gap 21.7 H (7-13) mEq/L BUN 16 (7-18) mg/dL Creatinine 1.30 (0.70-1.30) mg/dL Est Cr Clr Drug Dosing 65.50 mL/min Estimated GFR (MDRD) 56 BUN/Creatinine Ratio 12.3 (No establ ref range) Glucose 133 H (70-99) mg/dL POC Glucose 145 H (70-99) mg/dL Lactic Acid (0.4-2.0) mmol/L Uric Acid (3.5-7.2) mg/dL Calcium 9.3 (8.5-10.1) mg/dL Magnesium (1.8-2.4) mg/dL Total Bilirubin 1.2 H (0.2-1.0) mg/dL AST 30 (15-37) U/L ALT 43 (16-63) U/L Alkaline Phosphatase 111 (46-116) U/L C-Reactive Protein (0.0-0.9) mg/dL Total Protein 8.5 H (6.4-8.2) g/dL Albumin 3.2 L (3.4-5.0) g/dL Globulin 5.3 Albumin/Globulin Ratio 0.60 Ethyl Alcohol (0) mg/dL SARS-CoV-2 RNA (CHEMA) (NEGATIVE) 10/21/20 10/21/20 10/21/20 Range/Units 07:31 07:31 07:31 WBC (5.0-10.0) 10^3/uL RBC (4.6-6.2) 10^6/uL Hgb (14.0-18.0) g/dL Hct (40.0-54.0) % MCV (80-100) fL MCH (27.0-34.0) pg MCHC (33.0-35.0) g/dL Plt Count (150-450) 10^3/uL Neut % (Auto) (42.2-75.2) % Lymph % (Auto) (20.5-50.1) % [place] % (Auto) (2-8) % Eos % (Auto) (1.0-3.0) % Baso % (Auto) (0.0-1.0) % Add Manual Diff Neutrophils % (Manual) (42-75) % Band Neutrophils % % Lymphocytes % (Manual) (20-50) % Monocytes % (Manual) (2-8) % ESR 66 H (0-15) mm/hr Sodium (136-145) mmol/L Potassium (3.5-5.1) mmol/L Chloride (98-107) mmol/L Carbon Dioxide (21-32) mmol/L Anion Gap (7-13) mEq/L BUN (7-18) mg/dL Creatinine (0.70-1.30) mg/dL Est Cr Clr Drug Dosing mL/min Estimated GFR (MDRD) BUN/Creatinine Ratio (No establ ref range) Glucose (70-99) mg/dL POC Glucose (70-99) mg/dL Lactic Acid 2.9 H* (0.4-2.0) mmol/L Uric Acid 8.2 H (3.5-7.2) mg/dL Calcium (8.5-10.1) mg/dL Magnesium 2.0 (1.8-2.4) mg/dL Total Bilirubin (0.2-1.0) mg/dL AST (15-37) U/L ALT (16-63) U/L Alkaline Phosphatase (46-116) U/L C-Reactive Protein (0.0-0.9) mg/dL Total Protein (6.4-8.2) g/dL Albumin (3.4-5.0) g/dL Globulin Albumin/Globulin Ratio Ethyl Alcohol < 3 (0) mg/dL SARS-CoV-2 RNA (CHEMA) (NEGATIVE) 10/21/20 10/21/20 Range/Units 07:31 08:43 WBC (5.0-10.0) 10^3/uL RBC (4.6-6.2) 10^6/uL Hgb (14.0-18.0) g/dL Hct (40.0-54.0) % MCV (80-100) fL MCH (27.0-34.0) pg MCHC (33.0-35.0) g/dL Plt Count (150-450) 10^3/uL Neut % (Auto) (42.2-75.2) % Lymph % (Auto) (20.5-50.1) % [place] % (Auto) (2-8) % Eos % (Auto) (1.0-3.0) % Baso % (Auto) (0.0-1.0) % Add Manual Diff Neutrophils % (Manual) (42-75) % Band Neutrophils % % Lymphocytes % (Manual) (20-50) % Monocytes % (Manual) (2-8) % ESR (0-15) mm/hr Sodium (136-145) mmol/L Potassium (3.5-5.1) mmol/L Chloride (98-107) mmol/L Carbon Dioxide (21-32) mmol/L Anion Gap (7-13) mEq/L BUN (7-18) mg/dL Creatinine (0.70-1.30) mg/dL Est Cr Clr Drug Dosing mL/min Estimated GFR (MDRD) BUN/Creatinine Ratio (No establ ref range) Glucose (70-99) mg/dL POC Glucose (70-99) mg/dL Lactic Acid (0.4-2.0) mmol/L Uric Acid (3.5-7.2) mg/dL Calcium (8.5-10.1) mg/dL Magnesium (1.8-2.4) mg/dL Total Bilirubin (0.2-1.0) mg/dL AST (15-37) U/L ALT (16-63) U/L Alkaline Phosphatase (46-116) U/L C-Reactive Protein 20.5 H (0.0-0.9) mg/dL Total Protein (6.4-8.2) g/dL Albumin (3.4-5.0) g/dL Globulin Albumin/Globulin Ratio Ethyl Alcohol (0) mg/dL SARS-CoV-2 RNA (CHEMA) Negative (NEGATIVE) Result Diagrams: 10/21/20 07:31 10/21/20 07:31 Problem List Initiated/Reviewed/Updated: Yes Orders Last 24hrs: Active Orders 24 hr Category Date Time Status Admission Diagnosis [ADT] Stat ADT 10/21/20 08:30 Ordered Admission Status [Patient Status] [ADT] Routine ADT 10/21/20 08:30 Active Blood Glucose Check, Bedside [RC] ONETIME Care 10/21/20 07:17 Active Peripheral IV Care [RC] . DIRECTED Care 10/21/20 10:02 Ordered Up With Assistance [RC] ASDIRECTED Care 10/21/20 10:00 Ordered Vital Signs [RC] Q4H Care 10/21/20 10:00 Ordered Heart Healthy Diet [DIET] Diet 10/21/20 Breakfast Ordered CBC WITH AUTO DIFF [HEME] Routine Lab 10/22/20 05:00 Ordered CMP [COMPREHENSIVE METABOLIC PN,CMP] [CHEM] Routine Lab 10/22/20 05:00 Ordered CULTURE BLOOD [BC] Stat Lab 10/21/20 07:31 Received DRUG SCREEN URINE BIORAD [URCHEM] Urgent Lab 10/21/20 07:17 Ordered LACTIC ACID [CHEM] Routine Lab 10/21/20 12:00 Ordered REFLEX LACTIC ACID YES OR NO [CHEM] Routine Lab 10/21/20 08:07 Received UA RFX TABBY AND CULT IF INDIC [URIN] Stat Lab 10/21/20 07:17 Ordered URIC ACID [CHEM] Routine Lab 10/22/20 05:00 Ordered Acetaminophen [TylenoL] Med 10/21/20 10:00 Ordered 650 mg PO Q4H PRN Acetaminophen/oxyCODONE [Percocet 325-5 MG] Med 10/21/20 10:00 Ordered 1 tab PO Q4H PRN Colchicine [Colcrys] Med 10/21/20 10:15 Ordered 1.2 mg PO DAILY Enoxaparin [Lovenox] Med 10/22/20 09:00 Ordered 40 mg SUBCUT DAILY Indomethacin [Indocin] Med 10/21/20 12:00 Ordered 50 mg PO TIDMEALS Ondansetron [Zofran] Med 10/21/20 10:00 Ordered 4 mg IVPUSH Q4H PRN Pantoprazole [ProTONIX] Med 10/22/20 06:00 Ordered 40 mg PO ACBREAKFAST Sodium Chloride 0.9% [Normal Saline] 1,000 ml Med 10/21/20 10:00 Ordered IV ASDIRECTED Sodium Chloride 0.9% [Saline Flush] Med 10/21/20 10:00 Ordered 10 ml FLUSH ASDIRECTED PRN predniSONE Med 10/21/20 10:30 Ordered 60 mg PO WITHBREAKFAST Peripheral IV Insertion Adult [OM.PC] Routine Oth 10/21/20 10:00 Ordered Resuscitation Status Routine Resus Stat 10/21/20 10:00 Ordered Medication Orders Acetaminophen (Acetaminophen 325 Mg Tab) 650 mg PO Q4H PRN PRN Reason: Pain (Mild 1-3)/fever Enoxaparin Sodium (Enoxaparin 40 Mg/0.4 Ml Syringe) 40 mg SUBCUT DAILY MARYLIN Sodium Chloride (Normal Saline) 1,000 mls @ 100 mls/hr IV ASDIRECTED [place] Ondansetron HCl (Ondansetron 4 Mg/2 Ml Sdv) 4 mg IVPUSH Q4H PRN PRN Reason: Nausea/Vomiting Oxycodone/Acetaminophen (Acetaminophen/Oxycodone 325-5 Mg Tab) 1 tab PO Q4H PRN PRN Reason: Pain (moderate 4-6) Sodium Chloride (Sodium Chloride 0.9% 10 Ml Syringe) 10 ml FLUSH ASDIRECTED PRN PRN Reason: Keep Vein Open Assessment/Plan Comment:: Surgical History: Right hip surgery Family History: Diabetes, coronary artery disease Social History: Tobacco: Active smoker Alcohol: Patient has a history of alcohol abuse but has been in abstinence for at least a week Caffeine: Denies Drugs: Currently none. Past use: Marijuana, methamphetamine Allergies: No known drug allergies Code Status: DNR, DNI Assessment / Plan: Presumed acute gout flare. Will monitor uric acid level intermittently. IV normal saline 100 mL/h) on 6 mg p.o. daily plus colchicine 1.2 mg p.o. daily plus indomethacin 50 mg p.o. every 8 hours Hyperbilirubinemia. Will monitor bilirubin levels intermittently with CMP Chronic pain Arthritis Hepatitis C. Outpatient follow-up with infectious disease or gastroenterology upon discharge COPD Hypertension Obesity. Patient becomes regarding left eye medication Smoker. Patient counseled regarding smoking cessation Medical noncompliance. Patient will be counseled regarding medical compliance GI prophylaxis. Protonix 40 mg p.o. daily DVT prophylaxis. Lovenox 40 mg subcutaneously daily Disposition: Anticipate discharge within 24 hours END OF DOCTOR EMAMIS HISTORY AND PHYSICAL / CONSULTATION NOTE
[2020-10-21] MEDS: Indomethacin 25 MG Cap PO SCH ×2 (11:24→17:12)
[2020-10-21] MEDS: Colchicine 0.6 MG Tab PO SCH (11:24)
[2020-10-21] MEDS: predniSONE 20 MG Tab PO SCH (11:24)
[2020-10-21] MEDS: Sodium Chloride 0.9% 1,000 ML IV SCH ×2 (11:26→21:17)
[2020-10-21] MEDS ORDERED: Nicotine 21 MG/24 Hr Patch TRDERM PRN (14:08)
[2020-10-22] MEDS ORDERED: Pantoprazole 40 MG Tab.CR PO SCH (06:00)
[2020-10-22] MEDS: Sodium Chloride 0.9% 1,000 ML IV SCH (07:13)
--- NOTE | 2020-10-22 07:38 | PCM.DCSUM1 ---
Discharge Summary - Hospital Course Free Text/Narrative:: START OF DOCTOR EMAMIS DISCHARGE SUMMARY Date of Admission: 10/21/2020 Date of Discharge: 7:35 AM on 10/22/2020 Primary Diagnosis: Acute gout flare Secondary Diagnosis: Hyperbilirubinemia Chronic pain Arthritis Hepatitis C COPD Hypertension Obesity Smoker Anemia Medical noncompliance Consultations: None Condition on Discharge: Fair Disposition: The patient will be advised follow-up with his primary care physician or provider as needed The patient is advised to follow-up with gastroenterology or infectious disease 2 to 4 weeks post discharge for his history of hepatitis C Discharge Medications: Prednisone 10 mg p.o.: 6 tabs daily x2 days then 5 tabs daily x2 days then 4 tabs daily x2 days then 3 tab daily x2 days then 2 tabs daily x2 days then 1 tab daily x2 days. Quantity sufficient. 0 refills Indomethacin 50 mg p.o. every 8 hours x3 days as needed acute gout flare. Quantity 60. 0 refills Preston 10/305 mg p.o. daily as needed pain Protonix 40 mg p.o. daily. Quantity 15. 0 refills. This is for GI prophylaxis while the patient is on prednisone and it is not for a diagnosis of dyspepsia/GERD Tylenol 650 mg p.o. every 4 hours as needed minor pain Senna plus: 2 tabs p.o. twice daily as needed constipation. Quantity 30. 0 refills Colchicine 0.6 mg p.o. daily. Quantity 30. 0 refills END OF DOCTOR EMAMIS DISCHARGE SUMMARY - Discharge Data Discharge Date: 10/22/20 Discharge Disposition: Home, Self-Care 01 Condition: Fair - Referral to Home Health Primary Care Physician: PCP None - Patient Instructions Diet: Low Sodium Activity: As Tolerated - Discharge Plan Prescriptions/Med Rec: Colchicine 0.6 mg PO DAILY 30 Days #30 capsule Indomethacin [Indocin] 50 mg PO TIDMEALS PRN 30 Days #60 cap PRN Reason: Other predniSONE [Prednisone] 10 mg PO DAILY 1 Days #1 tablet Pantoprazole [ProTONIX] 40 mg PO ACBREAKFAST 15 Days #15 tab.cr Docusate Sodium/Sennosides [Senna Plus] 2 tab PO BID PRN 30 Days #30 tablet PRN Reason: Constipation Home Medications: Home Meds Acetaminophen/HYDROcodone [[place] 325-10 MG] 1 tab PO DAILY PRN 10/21/20 [History] Acetaminophen [Tylenol] 650 mg PO Q4H PRN tablet 10/22/20 [Rx] Colchicine 0.6 mg PO DAILY 30 Days #30 capsule 10/22/20 [Rx] Docusate Sodium/Sennosides [Senna Plus] 2 tab PO BID PRN 30 Days #30 tablet 10/22/20 [Rx] Indomethacin [Indocin] 50 mg PO TIDMEALS PRN 30 Days #60 cap 10/22/20 [Rx] Pantoprazole [ProTONIX] 40 mg PO ACBREAKFAST 15 Days #15 tab.cr 10/22/20 [Rx] predniSONE [Prednisone] 10 mg PO DAILY 1 Days #1 tablet 10/22/20 [Rx] Forms: ED Department Discharge Referrals: PCP,None [Primary Care Provider] - - Discharge Summary/Plan Comment DC Time >30 min.: Yes - General Info Date of Service: 10/22/20 - Review of Systems General: Reports: No Symptoms HEENT: Reports: No Symptoms Pulmonary: Reports: No Symptoms Cardiovascular: Reports: No Symptoms Gastrointestinal: Reports: No Symptoms Genitourinary: Reports: No Symptoms Musculoskeletal: Reports: No Symptoms Skin: Reports: No Symptoms Neurological: Reports: No Symptoms Psychiatric: Reports: No Symptoms - Patient Data Vitals - Most Recent: Last Vital Signs Temp 96.4 F L 10/22/20 00:00 Pulse 63 10/22/20 00:00 Resp 16 10/22/20 00:00 BP 126/73 10/22/20 00:00 Pulse Ox 96 10/22/20 00:00 Weight - Most Recent: 222 lb 14.4 oz I&O - Last 24 hours: Intake & Output 10/21/20 10/22/20 10/22/20 22:59 06:59 14:59 Intake Total 1540 450 Output Total 500 400 Balance 1040 50 Lab Results - Last 24 hrs: Laboratory Results - last 24 hr 10/21/20 10/21/20 10/21/20 Range/Units 07:31 07:31 07:31 WBC 13.0 H (5.0-10.0) 10^3/uL RBC 4.74 (4.6-6.2) 10^6/uL Hgb 16.0 (14.0-18.0) g/dL Hct 47.0 (40.0-54.0) % MCV 99.2 D (80-100) fL MCH 33.8 (27.0-34.0) pg MCHC 34.0 (33.0-35.0) g/dL Plt Count 285 D (150-450) 10^3/uL Neut % (Auto) 71.4 (42.2-75.2) % Lymph % (Auto) 12.7 L (20.5-50.1) % [place] % (Auto) 15.3 H (2-8) % Eos % (Auto) 0.2 L (1.0-3.0) % Baso % (Auto) 0.4 (0.0-1.0) % Add Manual Diff Yes Neutrophils % (Manual) 70 (42-75) % Band Neutrophils % 3 % Lymphocytes % (Manual) 16 L (20-50) % Monocytes % (Manual) 11 H (2-8) % ESR (0-15) mm/hr Sodium 137 (136-145) mmol/L Potassium 3.7 (3.5-5.1) mmol/L Chloride 96 L (98-107) mmol/L Carbon Dioxide 23 (21-32) mmol/L Anion Gap 21.7 H (7-13) mEq/L BUN 16 (7-18) mg/dL Creatinine 1.30 (0.70-1.30) mg/dL Est Cr Clr Drug Dosing 65.50 mL/min Estimated GFR (MDRD) 56 BUN/Creatinine Ratio 12.3 (No establ ref range) Glucose 133 H (70-99) mg/dL Lactic Acid (0.4-2.0) mmol/L Uric Acid 8.2 H (3.5-7.2) mg/dL Calcium 9.3 (8.5-10.1) mg/dL Magnesium 2.0 (1.8-2.4) mg/dL Total Bilirubin 1.2 H (0.2-1.0) mg/dL AST 30 (15-37) U/L ALT 43 (16-63) U/L Alkaline Phosphatase 111 (46-116) U/L C-Reactive Protein (0.0-0.9) mg/dL Total Protein 8.5 H (6.4-8.2) g/dL Albumin 3.2 L (3.4-5.0) g/dL Globulin 5.3 Albumin/Globulin Ratio 0.60 Urine Color (YELLOW) Urine Appearance (CLEAR) Urine pH (5.0-9.0) Ur Specific [place] (1.005-1.030) Urine Protein (NEGATIVE) Urine Glucose (UA) (NEGATIVE) Urine Ketones (NEGATIVE) Urine Occult Blood (NEGATIVE) Urine Nitrite (NEGATIVE) Urine Bilirubin (NEGATIVE) Urine Urobilinogen (0.2-1.0) mg/dL Ur Leukocyte Esterase (NEGATIVE) Urine RBC /HPF Urine WBC (0-5/HPF) /HPF Ur Epithelial Cells (NOT SEEN) /HPF Urine Bacteria (0-FEW/HPF) /HPF Urine Mucus (NOT SEEN) /LPF Urine Opiates Screen (NEGATIVE) Ur Oxycodone Screen (NEGATIVE) Urine Methadone Screen (NEGATIVE) Ur Barbiturates Screen (NEGATIVE) U Tricyclic Antidepress (NEGATIVE) Ur Phencyclidine Scrn (NEGATIVE) Ur Amphetamine Screen (NEGATIVE) U Methamphetamines Scrn (NEGATIVE) Urine MDMA Screen (NEGATIVE) U Benzodiazepines Scrn (NEGATIVE) Urine Cocaine Screen (NEGATIVE) U Marijuana (THC) Screen (NEGATIVE) Ethyl Alcohol < 3 (0) mg/dL SARS-CoV-2 RNA (CHEMA) (NEGATIVE) 10/21/20 10/21/20 10/21/20 Range/Units 07:31 07:31 07:31 WBC (5.0-10.0) 10^3/uL RBC (4.6-6.2) 10^6/uL Hgb (14.0-18.0) g/dL Hct (40.0-54.0) % MCV (80-100) fL MCH (27.0-34.0) pg MCHC (33.0-35.0) g/dL Plt Count (150-450) 10^3/uL Neut % (Auto) (42.2-75.2) % Lymph % (Auto) (20.5-50.1) % [place] % (Auto) (2-8) % Eos % (Auto) (1.0-3.0) % Baso % (Auto) (0.0-1.0) % Add Manual Diff Neutrophils % (Manual) (42-75) % Band Neutrophils % % Lymphocytes % (Manual) (20-50) % Monocytes % (Manual) (2-8) % ESR 66 H (0-15) mm/hr Sodium (136-145) mmol/L Potassium (3.5-5.1) mmol/L Chloride (98-107) mmol/L Carbon Dioxide (21-32) mmol/L Anion Gap (7-13) mEq/L BUN (7-18) mg/dL Creatinine (0.70-1.30) mg/dL Est Cr Clr Drug Dosing mL/min Estimated GFR (MDRD) BUN/Creatinine Ratio (No establ ref range) Glucose (70-99) mg/dL Lactic Acid 2.9 H* (0.4-2.0) mmol/L Uric Acid (3.5-7.2) mg/dL Calcium (8.5-10.1) mg/dL Magnesium (1.8-2.4) mg/dL Total Bilirubin (0.2-1.0) mg/dL AST (15-37) U/L ALT (16-63) U/L Alkaline Phosphatase (46-116) U/L C-Reactive Protein 20.5 H (0.0-0.9) mg/dL Total Protein (6.4-8.2) g/dL Albumin (3.4-5.0) g/dL Globulin Albumin/Globulin Ratio Urine Color (YELLOW) Urine Appearance (CLEAR) Urine pH (5.0-9.0) Ur Specific [place] (1.005-1.030) Urine Protein (NEGATIVE) Urine Glucose (UA) (NEGATIVE) Urine Ketones (NEGATIVE) Urine Occult Blood (NEGATIVE) Urine Nitrite (NEGATIVE) Urine Bilirubin (NEGATIVE) Urine Urobilinogen (0.2-1.0) mg/dL Ur Leukocyte Esterase (NEGATIVE) Urine RBC /HPF Urine WBC (0-5/HPF) /HPF Ur Epithelial Cells (NOT SEEN) /HPF Urine Bacteria (0-FEW/HPF) /HPF Urine Mucus (NOT SEEN) /LPF Urine Opiates Screen (NEGATIVE) Ur Oxycodone Screen (NEGATIVE) Urine Methadone Screen (NEGATIVE) Ur Barbiturates Screen (NEGATIVE) U Tricyclic Antidepress (NEGATIVE) Ur Phencyclidine Scrn (NEGATIVE) Ur Amphetamine Screen (NEGATIVE) U Methamphetamines Scrn (NEGATIVE) Urine MDMA Screen (NEGATIVE) U Benzodiazepines Scrn (NEGATIVE) Urine Cocaine Screen (NEGATIVE) U Marijuana (THC) Screen (NEGATIVE) Ethyl Alcohol (0) mg/dL SARS-CoV-2 RNA (CHEMA) (NEGATIVE) 10/21/20 10/21/20 10/21/20 Range/Units 08:43 12:08 22:58 WBC (5.0-10.0) 10^3/uL RBC (4.6-6.2) 10^6/uL Hgb (14.0-18.0) g/dL Hct (40.0-54.0) % MCV (80-100) fL MCH (27.0-34.0) pg MCHC (33.0-35.0) g/dL Plt Count (150-450) 10^3/uL Neut % (Auto) (42.2-75.2) % Lymph % (Auto) (20.5-50.1) % [place] % (Auto) (2-8) % Eos % (Auto) (1.0-3.0) % Baso % (Auto) (0.0-1.0) % Add Manual Diff Neutrophils % (Manual) (42-75) % Band Neutrophils % % Lymphocytes % (Manual) (20-50) % Monocytes % (Manual) (2-8) % ESR (0-15) mm/hr Sodium (136-145) mmol/L Potassium (3.5-5.1) mmol/L Chloride (98-107) mmol/L Carbon Dioxide (21-32) mmol/L Anion Gap (7-13) mEq/L BUN (7-18) mg/dL Creatinine (0.70-1.30) mg/dL Est Cr Clr Drug Dosing mL/min Estimated GFR (MDRD) BUN/Creatinine Ratio (No establ ref range) Glucose (70-99) mg/dL Lactic Acid 1.0 (0.4-2.0) mmol/L Uric Acid (3.5-7.2) mg/dL Calcium (8.5-10.1) mg/dL Magnesium (1.8-2.4) mg/dL Total Bilirubin (0.2-1.0) mg/dL AST (15-37) U/L ALT (16-63) U/L Alkaline Phosphatase (46-116) U/L C-Reactive Protein (0.0-0.9) mg/dL Total Protein (6.4-8.2) g/dL Albumin (3.4-5.0) g/dL Globulin Albumin/Globulin Ratio Urine Color Elsie (YELLOW) Urine Appearance Slightly cloudy (CLEAR) Urine pH 6.0 (5.0-9.0) Ur Specific [place] 1.020 (1.005-1.030) Urine Protein 30 H (NEGATIVE) Urine Glucose (UA) 250 H (NEGATIVE) Urine Ketones 15 H (NEGATIVE) Urine Occult Blood Negative (NEGATIVE) Urine Nitrite Negative (NEGATIVE) Urine Bilirubin Small H (NEGATIVE) Urine Urobilinogen 2.0 H (0.2-1.0) mg/dL Ur Leukocyte Esterase Negative (NEGATIVE) Urine RBC 0-5 /HPF Urine WBC 0-5 (0-5/HPF) /HPF Ur Epithelial Cells Moderate H (NOT SEEN) /HPF Urine Bacteria Moderate H (0-FEW/HPF) /HPF Urine Mucus Moderate H (NOT SEEN) /LPF Urine Opiates Screen (NEGATIVE) Ur Oxycodone Screen (NEGATIVE) Urine Methadone Screen (NEGATIVE) Ur Barbiturates Screen (NEGATIVE) U Tricyclic Antidepress (NEGATIVE) Ur Phencyclidine Scrn (NEGATIVE) Ur Amphetamine Screen (NEGATIVE) U Methamphetamines Scrn (NEGATIVE) Urine MDMA Screen (NEGATIVE) U Benzodiazepines Scrn (NEGATIVE) Urine Cocaine Screen (NEGATIVE) U Marijuana (THC) Screen (NEGATIVE) Ethyl Alcohol (0) mg/dL SARS-CoV-2 RNA (CHEMA) Negative (NEGATIVE) 10/21/20 10/22/20 Range/Units 22:58 05:55 WBC 16.9 H (5.0-10.0) 10^3/uL RBC 3.88 L (4.6-6.2) 10^6/uL Hgb 13.2 L D (14.0-18.0) g/dL Hct 37.7 L (40.0-54.0) % MCV 97.2 (80-100) fL MCH 34.0 (27.0-34.0) pg MCHC 35.0 (33.0-35.0) g/dL Plt Count 286 (150-450) 10^3/uL Neut % (Auto) 77.8 H (42.2-75.2) % Lymph % (Auto) 12.1 L (20.5-50.1) % [place] % (Auto) 9.9 H (2-8) % Eos % (Auto) 0.0 L (1.0-3.0) % Baso % (Auto) 0.2 (0.0-1.0) % Add Manual Diff Neutrophils % (Manual) (42-75) % Band Neutrophils % % Lymphocytes % (Manual) (20-50) % Monocytes % (Manual) (2-8) % ESR (0-15) mm/hr Sodium (136-145) mmol/L Potassium (3.5-5.1) mmol/L Chloride (98-107) mmol/L Carbon Dioxide (21-32) mmol/L Anion Gap (7-13) mEq/L BUN (7-18) mg/dL Creatinine (0.70-1.30) mg/dL Est Cr Clr Drug Dosing mL/min Estimated GFR (MDRD) BUN/Creatinine Ratio (No establ ref range) Glucose (70-99) mg/dL Lactic Acid (0.4-2.0) mmol/L Uric Acid (3.5-7.2) mg/dL Calcium (8.5-10.1) mg/dL Magnesium (1.8-2.4) mg/dL Total Bilirubin (0.2-1.0) mg/dL AST (15-37) U/L ALT (16-63) U/L Alkaline Phosphatase (46-116) U/L C-Reactive Protein (0.0-0.9) mg/dL Total Protein (6.4-8.2) g/dL Albumin (3.4-5.0) g/dL Globulin Albumin/Globulin Ratio Urine Color (YELLOW) Urine Appearance (CLEAR) Urine pH (5.0-9.0) Ur Specific [place] (1.005-1.030) Urine Protein (NEGATIVE) Urine Glucose (UA) (NEGATIVE) Urine Ketones (NEGATIVE) Urine Occult Blood (NEGATIVE) Urine Nitrite (NEGATIVE) Urine Bilirubin (NEGATIVE) Urine Urobilinogen (0.2-1.0) mg/dL Ur Leukocyte Esterase (NEGATIVE) Urine RBC /HPF Urine WBC (0-5/HPF) /HPF Ur Epithelial Cells (NOT SEEN) /HPF Urine Bacteria (0-FEW/HPF) /HPF Urine Mucus (NOT SEEN) /LPF Urine Opiates Screen Positive H (NEGATIVE) Ur Oxycodone Screen Negative (NEGATIVE) Urine Methadone Screen Negative (NEGATIVE) Ur Barbiturates Screen Negative (NEGATIVE) U Tricyclic Antidepress Negative (NEGATIVE) Ur Phencyclidine Scrn Negative (NEGATIVE) Ur Amphetamine Screen Negative (NEGATIVE) U Methamphetamines Scrn Negative (NEGATIVE) Urine MDMA Screen Negative (NEGATIVE) U Benzodiazepines Scrn Negative (NEGATIVE) Urine Cocaine Screen Negative (NEGATIVE) U Marijuana (THC) Screen Negative (NEGATIVE) Ethyl Alcohol (0) mg/dL SARS-CoV-2 RNA (CHEMA) (NEGATIVE) Med Orders - Current: Current Medications Acetaminophen (Acetaminophen 325 Mg Tab) 650 mg PO Q4H PRN PRN Reason: Pain (Mild 1-3)/fever Colchicine (Colchicine 0.6 Mg Tab) 1.2 mg PO DAILY [facility] Last Admin: 10/21/20 11:24 Dose: 1.2 mg Documented by: Enoxaparin Sodium (Enoxaparin 40 Mg/0.4 Ml Syringe) 40 mg SUBCUT DAILY [facility] Sodium Chloride (Normal Saline) 1,000 mls @ 100 mls/hr IV ASDIRECTED [facility] Last Admin: 10/22/20 07:13 Dose: 100 mls/hr Documented by: Indomethacin (Indomethacin 25 Mg Cap) 50 mg PO TIDMEALS [facility] Last Admin: 10/21/20 17:12 Dose: 50 mg Documented by: Miscellaneous Information (Remove Nicotine Patch) 1 ea TRDERM DAILY [facility] Nicotine (Nicotine 21 Mg/24 Hr Patch) 21 mg TRDERM DAILY PRN PRN Reason: Smoking Cessation Last Admin: 10/21/20 17:11 Dose: 21 mg Documented by: Ondansetron HCl (Ondansetron 4 Mg/2 Ml Sdv) 4 mg IVPUSH Q4H PRN PRN Reason: Nausea/Vomiting Oxycodone/Acetaminophen (Acetaminophen/Oxycodone 325-5 Mg Tab) 1 tab PO Q4H PRN PRN Reason: Pain (moderate 4-6) Last Admin: 10/21/20 21:17 Dose: 1 tab Documented by: Pantoprazole Sodium (Pantoprazole 40 Mg Tab.Cr) 40 mg PO ACBREAKFAST [facility] Last Admin: 10/22/20 06:04 Dose: 40 mg Documented by: Prednisone (Prednisone 20 Mg Tab) 60 mg PO WITHBREAKFAST [facility] Last Admin: 10/21/20 11:24 Dose: 60 mg Documented by: Senna/Docusate Sodium (Docusate Sodium/Sennosides 50-8.6 Mg Tab) 2 tab PO BID PRN PRN Reason: Constipation Last Admin: 10/21/20 21:17 Dose: 2 tab Documented by: Sodium Chloride (Sodium Chloride 0.9% 10 Ml Syringe) 10 ml FLUSH ASDIRECTED PRN PRN Reason: Keep Vein Open Discontinued Medications Hydromorphone HCl (Hydromorphone 1 Mg/Ml Syringe) 1 mg IVPUSH ONETIME ONE Stop: 10/21/20 08:12 Last Admin: 10/21/20 08:21 Dose: 1 mg Documented by: Sodium Chloride (Normal Saline) 1,000 mls @ 999 mls/hr IV .BOLUS ONE Stop: 10/21/20 08:18 Last Admin: 10/21/20 07:24 Dose: 999 mls/hr Documented by: Pantoprazole Sodium 40 mg/ (Sodium Chloride) 100 mls @ 200 mls/hr IV ONETIME ONE Stop: 10/21/20 08:41 Last Admin: 10/21/20 08:21 Dose: 200 mls/hr Documented by: Ketorolac Tromethamine (Ketorolac 30 Mg/Ml Sdv) 30 mg IVPUSH ONETIME ONE Stop: 10/21/20 07:33 Last Admin: 10/21/20 07:40 Dose: 30 mg Documented by: Methylprednisolone Sodium Succinate (Methylprednisolone Sodium Succinate 125 Mg/2 Ml Sdv) 125 mg IVPUSH ONETIME ONE Stop: 10/21/20 08:12 Last Admin: 10/21/20 08:21 Dose: 125 mg Documented by: - Exam General: Reports: Alert, Oriented HEENT: Reports: Pupils Equal, Pupils Reactive, EOMI, Mucous Membr. Moist/[place] Neck: Reports: Supple Lungs: Reports: Clear to Auscultation, Normal Respiratory Effort Cardiovascular: Reports: Regular Rate, Regular Rhythm GI/Abdominal Exam: Normal Bowel Sounds, Soft, Non-Tender, No Organomegaly, No Distention, No Abnormal Bruit, No Mass, Pelvis Stable Back Exam: Reports: Normal Inspection, Full Range of Motion Extremities: Normal Inspection, Normal Range of Motion, Non-Tender, No Pedal Edema, Normal Capillary Refill Skin: Reports: Warm, Dry, Intact Wound/Incisions: Reports: Healing Well Neurological: Reports: No New Focal Deficit Psy/Mental Status: Reports: Alert, Normal Affect, Normal Mood
[2020-10-22] MEDS: Indomethacin 25 MG Cap PO SCH ×2 (07:56→14:15)
[2020-10-22] MEDS: predniSONE 20 MG Tab PO SCH (07:56)
[2020-10-22] MEDS: Colchicine 0.6 MG Tab PO SCH (07:59)
[2020-10-22 08:30] LABS: ANION GAP 17.4 mEq/L (7-13); CHLORIDE,CL 101 mmol/L (98-107); SODIUM,NA 137 mmol/L (136-145)
[2020-10-22] MEDS ORDERED: Enoxaparin 40 MG/0.4 ML Syringe SUBCUT SCH (09:00)
[2020-10-22 12:18] VITALS: BP 138/78; PULSE 76
== END 2020-10-22 14:25 | disposition home or self-care (01) ==
LOC: DL.ED 06:45 → DL.MS 08:47 → EEVIPCON 08:47
PROVIDERS: ADMIT Internal Medicine; ATTEND Internal Medicine
DX: M10.9 Gout, unspecified (principal); E80.6 Other disorders of bilirubin metabolism; G89.29 Other chronic pain; M19.90 Unspecified osteoarthritis, unspecified site; B19.20 Unspecified viral hepatitis C without hepatic coma; J44.9 Chronic obstructive pulmonary disease, unspecified; I10 Essential (primary) hypertension; F17.210 Nicotine dependence, cigarettes, uncomplicated; D64.9 Anemia, unspecified; E66.9 Obesity, unspecified; Z68.31 Body mass index [BMI] 31.0-31.9, adult; Z91.19 Patient's noncompliance with other medical treatment and regimen
CPT/HCPCS: 36415; 80053; 80305-QW; 80307; 81001; 82947; 83605; 83735; 84550; 85025; 85651; 86140; 87040; 96372; 96374; 96375; 99285-25; A9270-GY; C9113; G0378; J1170; J1650; J1885; J2930; J7030; J7512; U0002

== ENCOUNTER 2021-02-04 12:21 | Emergency (ER) | payer BC, MEDICAID ==
[2021-02-04 13:05] VITALS: BP 138/92; PULSE 96
--- NOTE | 2021-02-04 13:07 | EDM.PDOC ---
ED HPI GENERAL MEDICAL PROBLEM - General Chief Complaint: Lower Extremity Injury/Pain Stated Complaint: CHRONIC PAIN RIGHT KNEE Time Seen by Provider: 02/04/21 13:00 Source of Information: Reports: Patient, Old Records, RN, RN Notes Reviewed History Limitations: Reports: No Limitations - History of Present Illness INITIAL COMMENTS - FREE TEXT/NARRATIVE: Wallace is a 60 y/o male who presents to the ED via personal vehicle with complaints of right knee pain. The patient reports the pain has waxed and waned in severity for several months. He has a history of gout, but the patient felt his pain was not related to gouty arthritis so he stopped taking his indomethacin two days ago. His last dose of pain medication was Advil 400mg two days ago. He denies history of injury or falls to the affected extremity. He notes a decrease in range of motion to the joint but denies loss of sensory function. Right Knee Pain Score (Numeric/FACES): 8 - Related Data Allergies Allergy/AdvReac Type Severity Reaction Status Date / Time No Known Allergies Allergy Verified 10/21/20 07:05 Home Meds: Home Meds Acetaminophen/HYDROcodone [Washburn 325-10 MG] 1 tab PO DAILY PRN 10/21/20 [History] Acetaminophen [Tylenol] 650 mg PO Q4H PRN tablet 10/22/20 [Rx] Colchicine 0.6 mg PO DAILY 30 Days #30 capsule 10/22/20 [Rx] Docusate Sodium/Sennosides [Senna Plus] 2 tab PO BID PRN 30 Days #30 tablet 10/22/20 [Rx] Indomethacin [Indocin] 50 mg PO TIDMEALS PRN 30 Days #60 cap 10/22/20 [Rx] Pantoprazole [ProTONIX] 40 mg PO ACBREAKFAST 15 Days #15 tab.cr 10/22/20 [Rx] predniSONE [Prednisone] 10 mg PO DAILY 1 Days #1 tablet 10/22/20 [Rx] Past Medical History - Past Health History Medical/Surgical History: Denies Medical/Surgical History HEENT History: Reports: Impaired Vision Cardiovascular History: Reports: None Respiratory History: Reports: COPD Gastrointestinal History: Reports: Other (See Below) Other Gastrointestinal History: hepatitis C Genitourinary History: Reports: None Musculoskeletal History: Reports: Arthritis, Back Pain, Chronic, Gout Neurological History: Reports: None Psychiatric History: Reports: None Endocrine/Metabolic History: Reports: None Hematologic History: Reports: None Immunologic History: Reports: None Oncologic (Cancer) History: Reports: None Dermatologic History: Reports: None - Infectious Disease History Infectious Disease History: Reports: Hepatitis C - Past Surgical History Head Surgeries/Procedures: Reports: None Cardiovascular Surgical History: Reports: None Respiratory Surgical History: Reports: None GI Surgical History: Reports: None Male Surgical History: Reports: None Endocrine Surgical History: Reports: None Oncologic Surgical History: Reports: None Dermatological Surgical History: Reports: None Social & Family History - Family History Family Medical History: No Pertinent Family History - Tobacco Use Tobacco Use Status *Q: Current Every Day Tobacco User Years of Tobacco use: 50 Packs/Tins Daily: 1.5 - Caffeine Use Caffeine Use: Reports: None - Recreational Drug Use Recreational Drug Use: No - Living Situation & Occupation Living situation: Reports: with Family Occupation: Disabled Review of Systems - Review of Systems Review Of Systems: Comprehensive ROS is negative, except as noted in HPI. ED EXAM, GENERAL - Physical Exam Exam: See Below Exam Limited By: No Limitations General Appearance: Alert, No Apparent Distress Eye Exam: Bilateral Eye: EOMI, Normal Inspection, PERRL (3mm) Ears: Normal External Exam, Hearing Grossly Normal Nose: Normal Inspection, Normal Mucosa, No Blood Throat/Mouth: Normal Oropharynx, Normal Voice, No Airway Compromise Head: Atraumatic, Normocephalic Neck: Normal Inspection, Supple, Non-Tender, Full Range of Motion Respiratory/Chest: No Respiratory Distress, Lungs Clear, Normal Breath Sounds, No Accessory Muscle Use, Chest Non-Tender Cardiovascular: Normal Peripheral Pulses, Regular Rate, Rhythm, No Gallop, No Murmur, No Rub Peripheral Pulses: 1+: Posterior Tibial (L), Posterior Tibial (R), 2+: Radial (L), Radial (R), Dorsalis Pedis (L), 3+: Dorsalis Pedis (R) GI/Abdominal: Normal Bowel Sounds, Soft, Non-Tender, No Distention, No Abnormal Bruit, No Mass, Pelvis Stable (Male) Exam: Deferred Rectal (Males) Exam: Deferred Back Exam: Normal Inspection, Full Range of Motion Extremities: Normal Inspection, No Pedal Edema, Normal Capillary Refill, Leg Pain (To right posterior knee), Limited Range of Motion (To right knee). No: Joint Swelling, Increased Warmth, Mottled, Pallor, Redness Neurological: Alert, Oriented, CN II-XII Intact, Normal Cognition, Normal Gait, Normal Reflexes, No Motor/Sensory Deficits Psychiatric: Normal Affect, Normal Mood Skin Exam: Warm, Dry, Intact, Normal Color, No Rash. No: Cyanosis, Ecchymosis, Erythema, Jaundice, Mottled, Pallor, Petechiae Course - Vital Signs Last Recorded V/S: Last Vital Signs Temp 97.4 F 02/04/21 12:47 Pulse 96 02/04/21 12:47 Resp 18 02/04/21 12:47 BP 138/92 H 02/04/21 12:47 Pulse Ox 95 02/04/21 12:47 - Orders/Labs/Meds Labs: Laboratory Tests 02/04/21 02/04/21 02/04/21 Range/Units 13:19 13:19 13:19 WBC 11.5 H (5.0-10.0) 10^3/uL RBC 4.81 (4.6-6.2) 10^6/uL Hgb 16.6 D (14.0-18.0) g/dL Hct 48.9 (40.0-54.0) % MCV 101.7 H D (80-100) fL MCH 34.5 H (27.0-34.0) pg MCHC 33.9 (33.0-35.0) g/dL Plt Count 263 (150-450) 10^3/uL Neut % (Auto) 69.4 (42.2-75.2) % Lymph % (Auto) 15.9 L (20.5-50.1) % Park % (Auto) 13.7 H (2-8) % Eos % (Auto) 0.3 L (1.0-3.0) % Baso % (Auto) 0.7 (0.0-1.0) % ESR 17 H (0-15) mm/hr Sodium 135 L (136-145) mmol/L Potassium 3.9 (3.5-5.1) mmol/L Chloride 96 L (98-107) mmol/L Carbon Dioxide 25 (21-32) mmol/L Anion Gap 17.9 H (7-13) mEq/L BUN 12 (7-18) mg/dL Creatinine 1.26 (0.70-1.30) mg/dL Est Cr Clr Drug Dosing 67.57 mL/min Estimated GFR (MDRD) 58 BUN/Creatinine Ratio 9.5 (No establ ref range) Glucose 158 H (70-99) mg/dL Uric Acid 8.1 H (3.5-7.2) mg/dL Calcium 9.0 (8.5-10.1) mg/dL Total Bilirubin 1.2 H (0.2-1.0) mg/dL AST 29 (15-37) U/L ALT 37 (16-63) U/L Alkaline Phosphatase 108 (46-116) U/L C-Reactive Protein 8.8 H (0.0-0.9) mg/dL Total Protein 8.2 (6.4-8.2) g/dL Albumin 3.5 (3.4-5.0) g/dL Globulin 4.7 Albumin/Globulin Ratio 0.7 Meds: Medications Discontinued Medications Generic Name Dose Route Start Last Admin Trade Name Freq PRN Reason Stop Dose Admin Hydrocodone Bitart/Acetaminophen 1 tab 02/04/21 14:25 02/04/21 14:30 Acetaminophen/Hydrocodone 325-5 Mg Tab PO 02/04/21 14:26 1 tab ONETIME ONE Administration Colchicine 0.6 mg 02/04/21 14:25 02/04/21 14:30 Colchicine 0.6 Mg Tab PO 02/04/21 14:26 0.6 mg ONETIME ONE Administration Ibuprofen 400 mg 02/04/21 13:24 02/04/21 13:31 Ibuprofen 400 Mg Tab PO 02/04/21 13:25 400 mg ONETIME ONE Administration Oxycodone/Acetaminophen 1 tab 02/04/21 14:22 Acetaminophen/Oxycodone 325-5 Mg Tab PO 02/04/21 14:23 ONETIME ONE - Re-Assessments/Exams Free Text/Narrative Re-Assessment/Exam: 02/04/21 Xray right knee obtained given lack of imaging while reviewing records. Ibuprofen 400mg PO administered. Patient verbalized no improvement in pain following medication. Will administer Washburn 5-325mg. Findings of examination and imaging reviewed with patient. Will treat acute pain with Washburn. Patient instructed to follow up with primary care provider in 1-2 to discuss restarting home anti-gout medications. Red flag signs and symptoms which would warrant immediate reevaluation reviewed. Patient verbalized understanding and agreement with the plan of care. Departure - Departure Time of Disposition: 15:12 Disposition: Home, Self-Care 01 Condition: Good Clinical Impression: Gout flare Qualifiers: Gout site: multiple sites Gout etiology: idiopathic Qualified Code(s): M10.09 - Idiopathic gout, multiple sites Effusion of bursa of knee Qualifiers: Laterality: right Qualified Code(s): M25.461 - Effusion, right knee - Discharge Information *PRESCRIPTION DRUG MONITORING PROGRAM REVIEWED*: Not Applicable *COPY OF PRESCRIPTION DRUG MONITORING REPORT IN PATIENT [place]: Not Applicable Instructions: Knee Effusion, Gout Forms: ED Department Discharge Additional Instructions: Rx: Washburn 1.) Follow up with your primary care provider regarding medication management, including restarting Allopurinol and indomethacin. 2.) You may take ibuprofen (Advil/Motrin) 400mg every six hours, as pain persists. 3.) You may apply ice to the affected area as pain and swelling persist. 4.) Return to the emergency department with persistent or worsening symptoms. Sepsis Event Note (ED) - Evaluation Sepsis Screening Result: No Definite Risk
[2021-02-04] MEDS: Ibuprofen 400 MG Tab PO ONE (13:31)
[2021-02-04 13:44] LABS: ANION GAP 17.9 mEq/L (7-13)
[2021-02-04] MEDS ORDERED: Acetaminophen/oxyCODONE 325-5 MG Tab PO ONE (14:22)
[2021-02-04] MEDS: Acetaminophen/HYDROcodone 325-5 MG Tab PO ONE (14:30)
[2021-02-04] MEDS: Colchicine 0.6 MG Tab PO ONE (14:30)
--- NOTE | 2021-02-04 14:35 | CR ---
EXAMINATION: Knee 3V Rt SEX: Male AGE: 60 years CLINICAL HISTORY: 60-year-old male with posterior right knee pain. Interpretation: Small suprapatellar bursal effusion. Internal derangement? No sign of Nascimento's cyst but ultrasound may prove helpful. Note: Atheromatous calcifications distal femoral artery, soft tissues, distal right thigh. Homogeneous normal bone mineral density. No pathologic skeletal lesion (lytic or blastic). No right knee fracture, dislocation or radiopaque loose joint body. Symmetric normal spacing of the knee joint without appreciable arthritic degenerative change. Mild reactive sclerosis and tiny marginal spur patellofemoral surface of the right patella. No foreign bodies.
== END 2021-02-04 15:26 | disposition home or self-care (01) ==
LOC: DL.ED 12:21
DX: M25.461 Effusion, right knee (principal); M10.09 Idiopathic gout, multiple sites; J44.9 Chronic obstructive pulmonary disease, unspecified; Z72.0 Tobacco use; Z79.899 Other long term (current) drug therapy
CPT/HCPCS: 36415; 73562; 80053; 84550; 85025; 85651; 86140; 99283; A9270

== ENCOUNTER 2021-09-08 04:15 | Emergency (ER) | payer BC, MEDICAID ==
[2021-09-08] MEDS ORDERED: Nitroglycerin 0.4 MG Tab.SL SL ONE ×2 (04:22→04:40)
[2021-09-08] MEDS ORDERED: Aspirin 81 MG Tab.Chew PO ONE (04:22)
[2021-09-08] MEDS ORDERED: Sodium Chloride 0.9% 1,000 ML IV ONE (04:43)
[2021-09-08 04:58] LABS: ANION GAP 13.3 mEq/L (7-13); CHLORIDE,CL 100 mmol/L (98-107); SODIUM,NA 135 mmol/L (136-145)
[2021-09-08 06:29] VITALS: BP 123/69; PULSE 66
== END 2021-09-08 07:05 | disposition home or self-care (01) ==
LOC: DL.ED 04:15
DX: R07.89 Other chest pain (principal); F10.10 Alcohol abuse, uncomplicated; I10 Essential (primary) hypertension; F17.210 Nicotine dependence, cigarettes, uncomplicated; J44.9 Chronic obstructive pulmonary disease, unspecified; Z20.822 Contact with and (suspected) exposure to COVID-19
CPT/HCPCS: 36415; 71045; 80053; 80307; 82150; 83690; 83735; 84484; 85025; 85379; 85610; 93005; 99285-25; A9270-GY; J7030; U0002

== ENCOUNTER 2021-09-17 09:39 | Emergency (ER) | payer BC, MEDICAID ==
[2021-09-17 09:51] VITALS: BP 164/96; PULSE 104
== END 2021-09-17 10:17 | disposition home or self-care (01) ==
LOC: DL.ED 09:39
DX: B02.9 Zoster without complications (principal); J44.9 Chronic obstructive pulmonary disease, unspecified; I10 Essential (primary) hypertension; F17.210 Nicotine dependence, cigarettes, uncomplicated; Z79.899 Other long term (current) drug therapy
CPT/HCPCS: 99282; 99283